=== PATIENT | male | born 1955 | race African-American/Black ===

== ENCOUNTER 2019-03-09 12:22 | Inpatient (IN) | payer SELFPAY ==
[~2019-03-09] VITALS: Ht 165.1 cm; Wt 84.9 kg
--- NOTE | 2019-03-09 13:01 | NUR ---
PT PRESENTS TO ED WITH C/O ALOC, BACK PAIN, AND LOW BLOOD SUGAR. 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 EMS STS PT WAS ACTING CONFUSED AND PT BS WAS 55. EMS STS THEY GAVE GLUCOSE AND PT BS WENT UP TO 65 SO THEY GAVE PT D10. EMS STS PT WAS AFIB RVR ON MONITOR IN ROUTE TO ED, BUT ARRIVED TO ED WITH ONLY AFIB ON THE MONITOR. EMS STS PT ONLY HAS HX OF HTN, BUT HAS NOT SEEN A MD IN "OVER 7 YEARS". PER PT, HE STOPPED TAKING HTN MEDICATION "A COUPLE YEARS AGO". PT ARRIVED TO ED ONLY COMPLAINING OF LOWER BACK/SACRAL PAIN. PT DENIES ANY TRAUMA TO BACK OR N/V/D. PT ARRIVED COLD/CLAMMY , RR 28, W/ INCREASE WOB NOTED. PT AAOX3, PUT ON FULL CM. WILL CONTINUE TO MONITOR.
--- NOTE | 2019-03-09 13:15 | NUR ---
PT EDILBERTO ARRIVED AT BEDSIDE STATING PT HAD DIFFICULTY WALKING YESTERDAY AND SLEPT ON THE FLOOR. PER EDILBERTO PT WAS BREATHING "FASTER THAN HE NORMALLY DOES". MYRANDAMILLIE STS SHE SLEPT ON THE FLOOR WITH PT AND CALL EMS WHEN PT WAS C/O BACK PAIN.
--- NOTE | 2019-03-09 13:29 | NUR ---
XRAY AT BEDSIDE.
[2019-03-09 13:46] LABS: CALCIUM 8.7 mg/dL (8.5-10.1); CARBON DIOXIDE 15.2 mmol/L (21-32); CREATININE SERUM 1.9 mg/dL (0.7-1.3)
[2019-03-09 13:50] LABS: BILIRUBIN TOTAL 4.9 mg/dL (0.20-1.00); TOTAL PROTEIN, SERUM 6.6 g/dL (6.4-8.2)
[2019-03-09 13:53] LABS: PLATELET COUNT 96 x10^3mcL (130-400); RED CELL DISTRIBUTION WIDTH 16.7 % (11.5-14.5)
[2019-03-09 13:55] LABS: ALBUMIN 2.2 g/dL (3.4-5.0)
--- NOTE | 2019-03-09 13:57 | NUR ---
PT ACTING MORE CONFUSED, ASKING "WHERE AM I". PT ABLE TO STATE HIS NAME, DATE OF , AND NAME OF FIANCE AT BEDSIDE. DR. LYN NOTIFIED.
[2019-03-09 13:58] LABS: T3 TOTAL 0.46 ng/mL
--- NOTE | 2019-03-09 14:05 | NUR ---
NOTIFIED DR. LYN OF PT BP 85/53, PER , HOLD LASIX MEDICATION FOR NOW.
--- NOTE | 2019-03-09 14:15 | NUR ---
PT TOLD HE NEEDS TO PROVIDE URINE SAMPLE. PT STS HE CAN USE URINAL. PT GIVEN URINAL.
[2019-03-09 14:18] LABS: FREE T4 1.33 ng/dL (0.76-1.46); FREE THYROXINE INDEX 2.7 ug/dL (1.4-4.5); T4(THYROXINE) 7.4 ug/dL (4.7-13.3)
[2019-03-09 14:26] LABS: MONOCYTE 8 % (0-7); SEGMENTED NEUTROPHILS 86 % (37-75)
[2019-03-09 14:27] LABS: rbc morphology (normal/abnorm) NORMAL (NORMAL)
[2019-03-09 15:18] LABS: UA SPECIFIC GRAVITY >=1.030 (1.005-1.035); microscopic required? YES; urine erythrocyte 2+ (NEGATIVE)
[2019-03-09 17:00] VITALS: BP 97/68
--- NOTE | 2019-03-09 17:10 | NUR ---
PT PLACED ON JASON WRIST RESTAINTS FOR SAFETY OF PT NOT REMOVING OG TUBE AND EXTUBATING SELF
--- NOTE | 2019-03-09 17:21 | NUR ---
PROPOFOL INCREASED TO 20MCG/MIN TO REACH RSS SCORE. PT AWAKE AND GAGGING AND MOVING
--- NOTE | 2019-03-09 17:45 | NUR ---
XRAY AT BEDSIDE. PER DR JAMES. OG TUBE IS IN CORRECT PLACEMENT
--- NOTE | 2019-03-09 18:07 | NUR ---
DR JAMES MADE AWARE OF DROP IN BP, ORDERING FENTANYL DRIP
[2019-03-09 18:13] VITALS: BP 87/57
--- NOTE | 2019-03-09 18:32 | NUR ---
PER DR JAMES VERBAL ORDER, START FENTANYL DRIP AT 2MG/KG/HR
--- NOTE | 2019-03-09 18:33 | NUR ---
PER DR MARAVILLA VERBAL ORDER, SINCE FENTANYL IS INFUSING ROP PROPOFOL TO 15MCG/KG/MIN
[2019-03-09 18:38] LABS: AMPHETAMINE QUAL UR NONE DETECTED (See below)
--- NOTE | 2019-03-09 18:51 | NUR ---
PT FINANCE STATES SHE WENT HOME TO EAT AND SLEEP AND WILL COME BACK. CONTACT INFO IN PATIENTS CHART
--- NOTE | 2019-03-09 19:03 | NUR ---
DR JAMES MADE AWARE OF MAP OF 64, PER VERBAL ORDER DROP PROPOFOL TO 10MCG/KG/MIN AND INCREASE FENTANYL TO 2.5 MCG/KG/HR
--- NOTE | 2019-03-09 19:18 | NUR ---
PER DR JAMES DROP PROPOFOL TO 5MCG/KG/MIN
--- NOTE | 2019-03-09 19:43 | NUR ---
ET TUBE PULLED BACK PER XRAY ORDER. PT IS NOW AT 22 AT LIP
--- NOTE | 2019-03-09 19:50 | NUR ---
PULLED ET TO 22CM AT THE LIP.
--- NOTE | 2019-03-09 20:00 | NUR ---
PER DR JAMES REPEAT XRAY LOOKS GOOD
--- NOTE | 2019-03-09 20:03 | NUR ---
REPORT GIVEN TO TALIA BROOKS IN ICU FOR FURTHER CARE OF PT
--- NOTE | 2019-03-09 20:16 | NUR ---
TRANSPORTED PATIENT ON VENTILATOR FROM ER TO ICU BED 5 WITH NO INCIDENT. VENTILATOR IS PLUGGED INTO RED OUTLET AND CONNECTED TO OXYGEN. SPO2 MAINTAINED AT 98%.
[2019-03-09 20:38] VITALS: BP 79/52
--- NOTE | 2019-03-09 20:50 | NUR ---
NIBP 79/52 (62), LEVOPHED GTT INITIATED @ 2 MCG/MIN.
--- NOTE | 2019-03-09 20:50 | NUR ---
RECEIVED PT FROM ER VIA GURNEY ACCOMPANIED BY RN AND EMT. PT TRANSFERED TO ICU BED 5 WITH NO COMPLICATIONS. PT CONNECTED TO FULL CONSTRUCTION ANALYST, VITALS READING: NIBP 79/52 MAP 62, HR 106, RR 20, SPO2 100%, AXILLARY TEMP 96.8. RECEIVED PT INTUBATED AND SEDATED ON PROPOFOL @ 5 MCG/KG/MIN AND FENTANYL GTT @ 2.5 MCG/KG/HR. RSS=5. FENTANYL GTT TITRATED TO 1 MCG/KG/HR. PT RESPONDS TO PAINFUL STIMULI. GAG REFLEX PRESENT. PUPILS WITH SLUGGISH RESPONDS TO LIGHT 2 MM BILAT. 8.0 ETT INTACT/SECURED, 22 CM @ LL. OGT INTACT/SECURED. BREATHING IS E/U ON VENT. VENT SETTINGS: VCV AC MODE, RATE 16, VT 500, PEEP 5, FIO2 40%. LUNGS SOUND CLEAR TO BUL AND DIMIN TO BLL. SYMMETRICAL CHEST EXPANSION NOTED. S1/S2 HEART SOUNDS AUSCULTATED. CHEST WALL EQUAL AND SYMMETRICAL. LEVOPHED GTT INFUSING @ 2 MCG/MIN. PALPABLE PULSES X4 EXTREMITIES. SKIN IS WARM AND DRY. +3 PITTING EDEMA NOTED TO BLE. CAP REFILL<3 SECS. RAC, LAC, AND RFA IV'S INTACT/ SECURED, NO S/S OF INFILTRATION NOTED. NS INFUSING @ 100 ML/HR. PT ON BILAT SOFT WRIST RESTRAINT FOR PT SAFETY, GOOD CIRCULATION NOTED. ABD IS SOFT, ROUND, NONTENDER TO PALPATION. BOWEL SOUNDS ACTIVE X4 QUADRANTS. NO BM NOTED. F/C INTACT/SECURED, DRAINING VIA GRAVITY WITH AVINASH COLORED URINE. NO SCROTAL EDEMA/PENILE DISCHARGE NOTED. SKIN IS INTACT. BED IN LOW POSITION. CALL LIGHT IN REACH. WILL CONT TO MONITOR
--- NOTE | 2019-03-09 21:30 | NUR ---
NIBP 83/57 MAP 63. LEVOPHED GTT INCREASED TO 4 MCG/MIN
[2019-03-09 22:18] VITALS: BP 86/58
[2019-03-09 23:00] VITALS: BP 90/58
--- NOTE | 2019-03-09 23:00 | NUR ---
RSS=5. FENTANYL GTT TITRATED TO 0.05 MCG/KG/HR.
[2019-03-10] VITALS (17 sets, daily range): BP systolic 82–106; BP diastolic 47–60
--- NOTE | 2019-03-10 00:20 | NUR ---
DR. ALLEN AT BEDSIDE. UPDATED ON PT'S STATUS. PER DR. ALLEN, WILL PLACE PT ON AMIODARONE GTT
--- NOTE | 2019-03-10 01:05 | NUR ---
AMIODARINE GTT INITIATED AT THIS TIME @ 1 MG/MIN PER DR. TIFFANY MARIE
--- NOTE | 2019-03-10 01:10 | NUR ---
REPORT GIVEN TO CHANDLER COMPLIANCE ADMINISTRATOR FOR CONTINUITY OF CARE. ALL QUESTIONS/CONCERNS ADDRESSED. ENDORSING ALL CARE
[2019-03-10 06:57] LABS: CALCIUM 7.9 mg/dL (8.5-10.1); CARBON DIOXIDE 15.5 mmol/L (21-32); CREATININE SERUM 1.8 mg/dL (0.7-1.3); MAGNESIUM 1.8 mg/dL (1.8-2.4); PHOSPHOROUS 3.9 mg/dL (2.5-4.9)
[2019-03-10 07:12] LABS: PLATELET COUNT 106 x10^3mcL (130-400); RED CELL DISTRIBUTION WIDTH 15.6 % (11.5-14.5)
--- NOTE | 2019-03-10 07:15 | NUR ---
RECEIVED PT'S REPORT FROM LEAVING NURSE. PT IS INTUBATED WITH SEDATION FENTAMYL 0.5MCG/KG/HR, AND PROPOFOL 5MCG/KG/MIN, RSS 5. DECREASED PROPOFOL FROM 5 TO 4 MCG/KG/MIN. PT BREATHING ON VENT AC MODE: TV 500, FIO2 40%, PEEP 5, RR 16. OGT SECURED TO ETT. RAYO IN PLACE, DRAINING VIA GRAVITY, AVINASH URINE. NEW RIJ CENTRAL LINE INSERTED. COOLING MEASURES APPLIED FOR ELEVATED TEMP. WILL CONTINUE TO MONITOR.
--- NOTE | 2019-03-10 07:30 | NUR ---
START PT ON AMIODARONE 0.5MG/MIN FOR 18HRS.
--- NOTE | 2019-03-10 10:05 | NUR ---
PT'S BP 108/57, TITRATE DOWN LEVOPHED FROM 12MCG/MIN TO 10MCG/MIN. DC PROPOFOL, AND STARTED VERSED AT 2MG/H PER ORDER, RSS 4 AT THIS TIME.
--- NOTE | 2019-03-10 10:50 | NUR ---
PT'S 3RD TROP 2.[address] THORNE AWARE WHILE MORNING ROUND.
--- NOTE | 2019-03-10 11:07 | NUR ---
PT'S BP 87/50 (59), TITRATE UP LEVOPHED FROM 10MCG/MIN TO 12MCG/MIN. PT RSS 5, TITRATE VERSED FROM 2MG/H TO 1MG/HR.
--- NOTE | 2019-03-10 11:35 | NUR ---
PT' BP 99/51 (61), TITRATE UP FROM 12 TO 14 MCG/MIN.
[2019-03-10 11:52] LABS: BAND NEUTROPHIL 1 % (0-10); MONOCYTE 7 % (0-7); SEGMENTED NEUTROPHILS 86 % (37-75)
[2019-03-10 11:53] LABS: MYELOCYTE 1 % (0-2); rbc morphology (normal/abnorm) ABNORMAL (NORMAL); tear drop cell (dacryocyte) 1+
[2019-03-10 11:54] LABS: PLATELET MORPHOLOGY PLATELETS DECREASED
--- NOTE | 2019-03-10 12:26 | NUR ---
DR. SAAVEDRA ASSESSED PT AT BEDSIDE. PT'S CONDITION UPDATED. PER DR. SAAVEDRA, STOPED IV FLUID, CONTINUE AMIODARONE 0.5MG/MIN FOR 18 HRS.
--- NOTE | 2019-03-10 13:33 | NUR ---
PT IS WELL SEDATED, RSS 5, BP 94/60. TITRATED DOWN VERSED FROM 1 TO 0.5MG/HR.
--- NOTE | 2019-03-10 16:35 | NUR ---
Discount pharmacy card and list to low cost medical clinics given to patient by Piero Colunga.
--- NOTE | 2019-03-10 18:30 | NUR ---
PT'S FIANCE AT BEDSIDE. PT'S CONDITION UPDATED. PT IS STILL WELL SEDATED ON VERSED 0.5MG/HR, FENTANYL 0.5MCG/KG/H, RSS 4. PT'S HR REMAINING AT 110s ON AMIODARONE DRIP 0.5MG/MIN SINCE THIS MORNING 0730 AM. PT BREATHING ON VENT AC MODE, MILD LABORED NOTED. PT'S BP IS MAINTAINING MAP > 65 BY LEVOPHED. 200ML TOTAL URINE OUTPUT THROUGH SHIFT. WILL ENDORSE PT'S CARE TO COMING NURSE.
--- NOTE | 2019-03-10 19:01 | NUR ---
RECIEVED REPORT FROM TODD BEYER. NURSING UPDATES POC DISCUSSED. SEE SHIFT ASSESSMENT FOR ASSESSMENT.
--- NOTE | 2019-03-10 22:00 | NUR ---
NO ACUTE CHANGES. WILL CONT TO MONITOR.
[2019-03-11] VITALS (18 sets, daily range): BP systolic 88–103; BP diastolic 45–62
--- NOTE | 2019-03-11 01:00 | NUR ---
TITRATED LEVO FROM 12MCG TO 14MCG PER PT LOW BP. WILL CONT TO MONITOR.
--- NOTE | 2019-03-11 02:24 | NUR ---
NO ACUTE CHANGES. WILL CONT TO MONITOR.
--- NOTE | 2019-03-11 02:25 | NUR ---
TITRATED LEVO FROM 14MCG TO 16MCG PER PT LOW BP. WILL CONT TO MONITOR.
--- NOTE | 2019-03-11 03:30 | NUR ---
TITRATED LEVO FROM 16MCG TO 18MCG PER PT LOW BP. WILL CONT TO MONITOR.
--- NOTE | 2019-03-11 04:00 | NUR ---
PT CLEANED AND LINENS CHANGED. NOTED PT W/ WARM TEMP TO TOUCH. TEMP RETAKEN 101.9. NOTED WILL REASSESS W/ COOLING MEASURES AND PRN.
--- NOTE | 2019-03-11 04:19 | NUR ---
ADM PRN TYLENOL FOR FEVER 102.0. PT FELT WARM TO THE TOUCH. COOLING MEASURES IN [place]. WILL REASSESS.
--- NOTE | 2019-03-11 04:30 | NUR ---
TITRATED LEVO FROM 18 MCG TO 20MCG PER PT LOW BP. WILL CONT TO MONITOR.
--- NOTE | 2019-03-11 05:28 | NUR ---
RESIDENTIAL MANAGER JULIETA @ BEDSIDE.
[2019-03-11 05:42] LABS: PLATELET COUNT 82 x10^3mcL (130-400); RED CELL DISTRIBUTION WIDTH 16.4 % (11.5-14.5)
[2019-03-11 05:44] LABS: CALCIUM 7.8 mg/dL (8.5-10.1); CARBON DIOXIDE 18.7 mmol/L (21-32); CREATININE SERUM 2.2 mg/dL (0.7-1.3); MAGNESIUM 1.8 mg/dL (1.8-2.4); PHOSPHOROUS 3.5 mg/dL (2.5-4.9); POTASSIUM SERUM 3.6 mmol/L (3.5-5.1)
--- NOTE | 2019-03-11 06:57 | NUR ---
SISTER OMA CALLED FOR UPDATES. NOTIFIED FOR VERBAL PASSWORD TO DILINQUISH PT INFORMATION. SHE STATED SHE WOULD CALL BACK AROUND NOON FOR UPDATES AND TO ATTEMPT TO SPEAK TO THE DOCTOR.
--- NOTE | 2019-03-11 09:26 | NUR ---
RECEIVED CALL FROM JEREMY CASANOVA. UPDATED ON PT STATUS. JEREMY ALSO REQUESTING PASSWORD FOR SHARING OF PT INFO W/ FAMILY: [id number].
[2019-03-11 10:18] LABS: ALBUMIN 1.7 g/dL (3.4-5.0); BILIRUBIN DIRECT 6.45 mg/dL (0.0-0.2); BILIRUBIN TOTAL 7.25 mg/dL (0.20-1.00); TOTAL PROTEIN, SERUM 5.4 g/dL (6.4-8.2)
--- NOTE | 2019-03-11 10:20 | NUR ---
DR SCHULTE AND RESIDENTS ROUNDING. NO FAMILY BEDSIDE. UPDATES PROVIDED BY NURSING.
--- NOTE | 2019-03-11 11:00 | NUR ---
SEDATION VACATION ATTEMPTED. FENTANYL AND VERSED TITRATED OFF AT THIS TIME.
--- NOTE | 2019-03-11 11:40 | NUR ---
TUBE FEEDING INITIATED @ 10 ML/HR.
--- NOTE | 2019-03-11 12:44 | NUR ---
SCREEN FOR LOW PHILIP SCALE AT RISK CONTINUE PRESSURE ULCER PREVENTION INTERVENTIONS: -TURN AND REPOSITION PATIENT Q 2H OFFLOAD LEFT AND RIGHT HIPS -ASSESS AND MONITOR SKIN CONDITION DURING POSITION CHANGE -OFFLOAD BILATERAL HEELS BY PLACING PILLOWS UNDER CALVES AT ALL TIMES, UNLESS OTHERWISE CONTRAINDICATED -PRESSURE REDISTRIBUTION SURFACE THERAPY WITH PILLOWS/WEDGE POSITIONER -KEEP SKIN CLEAN AND DRY AT ALL TIMES.
--- NOTE | 2019-03-11 14:28 | NUR ---
Initial Nutrition Assessment: IC07/24 JAS[facility] FU HR Dx: NSTEMI, CHF, Afib PMHx: HTN, Afib PSHx: none Labs: BG 132H, BUN 49H, CREAT 2.2H, ALB 2.2L, AST 59H, ALT 15L, WBC 31.1L, HGB 10.4L Meds: Colace, flagyl, levophed, morphine, norco, versed, Zofran, zosyn Diet: (NG) Vital AF 1.2 @ 10 ml/hr, goal 30 ml/hr. PO intake since admission: NPO Ht: 165.1 cm (65") Wt: 94 kg (206#) BMI: 34.5 kg/m2 Bed scale: 206# IBW: 136# (62 kg) %IBW: 151 UBW: unable to access Age: 64/M Food Allergies: NKFA Skin: dry skin on JASON foot Kojo: 12 Edema: +3 BLE GI: Last BM: Per H&P, Pt is a 64 YO M came to ED with c/o intermittent sacral pain for the past [address] Note (03/11): Patient is intubated and sedated. Per RN Michael, tube feedings were ordered this morning and will be initiated soon. Called discharge rn in the afternoon, he said that Vital AF is running @ 10 ml/hr. Problem with: N/V/D/C: none per RN Problems with: Chewing: Swallowing: yes, on TF Current appetite: unable to access Recent wt change: unable to access %wt change: n/a Vitamin/Supplement use: unable to access Special diet at home: unable to access Physical activity: unable to access Nutrition education given: not possible at this time Food-drug interactions: none Education given: n/a Estimated Nutritional Needs Based on adjusted body weight (70 kg) (min vent- 10.6, temp- 37.6) Energy: 4223-9389 vs 1966 kcal/day (30-35 vs PSU kcal/kg for mechanical ventilator support) Protein: 84-98 g/day (1.2-1.4 g/kg for mechanical ventilator support) Fluid: 1199-6987 mL/day (1 mL/kcal) Nutrition Diagnosis: 1. Inadequate enteral nutrition infusion related to low TF rate as evidenced by current rate meeting <75% estimated calorie and protein needs of the patient. Intervention 1. Recommend progressing Vital AF 1.2 @ goal rate of 60 ml/hr. This will provide 1730 kcal and 108g protein. This will meet 100% calorie and protein needs of the patient. Discussed with Dr. Matta. Monitor/Evaluate Goal: PO intake at least 75% of estimated needs Monitor: PO intake, Labs, GI function F/U in 3-5 days as moderate risk 03/14-
--- NOTE | 2019-03-11 15:38 | NUR ---
LEVOPHED TITRATED TO 18 MCG/MIN, MAP 77.
--- NOTE | 2019-03-11 16:01 | NUR ---
PUT ON CPAP BY DR RAUSCH: 12/28, 30% FIO2.
--- NOTE | 2019-03-11 20:00 | NUR ---
PT RESTING WITH EYES CLOSED. RESPONDS TO PAIN STIMULI. COARSE CRACKLES NOTED JASON LUUNGS. BREATHING EVEN AND UNLABORED ON ETT TO VENT, CPAP, SPO2 100%. BOWEL SOUNDS ACTIVE. NON PITTING EDEMA NOTED ON BUE. PITTING EDEMA NOTED ON BLE. RAYO CATH INTACT AND DRAINING TO GRAVITY WITH TEA COLORED URINE. IV SALINE LOCK NOTED ON JASON AC AND RIGHT WRIST. RIJ CENTRAL LINE NOTED INFUSING ORDERED. MADE PT COMFORTABLE. PLACED CALL LIGHT WITH IN REACH. WILL CONTINUE TO MONITOR.
--- NOTE | 2019-03-11 21:04 | NUR ---
PT TUBE FEEDING REDUCED TO 10 ML/HR. RESIDUAL OUTPUT 150 ML/HR.
--- NOTE | 2019-03-11 23:23 | NUR ---
PT WAS PUT BACK ON AC MODE BY RT. DR. ALLEN AND DR. SOARES MADE AWARE. NO NEW ORDER GIVEN. WILL CONTINUE TO MONITOR.
[2019-03-12] VITALS (18 sets, daily range): BP systolic 93–113; BP diastolic 54–97
--- NOTE | 2019-03-12 00:51 | NUR ---
PT WAS OBSERVED TO HAVE YELLOW THICK DISCHARGE COMING FROM THE TIP OF THE PENIS. DR. ALLEN NOTIFIED. WILL CONTINUE TO MONITOR.
--- NOTE | 2019-03-12 01:25 | NUR ---
Seen and examined by Dr. Kale Horne with new orders. CBC, BMP , orders already in system. Will continue to monitor.
--- NOTE | 2019-03-12 01:37 | NUR ---
PT NOTED WITH FACIAL GRIMACE AND RESPIRATORY RATE 26. GAVE PT MORPHINE IVP. PT TOLERATED IT WELL. WILL CONTINUE TO MONITOR.
--- NOTE | 2019-03-12 05:14 | NUR ---
PT NOTICED WITH FACIAL GRIMACE, RR 27. GAVE PT MORPHINE IVP. PT TOLERATED IT WELL. WILL CONTINUE TO MONITOR.
[2019-03-12 05:18] LABS: BASOPHIL % 0.3 % (0-2)
[2019-03-12 05:27] LABS: CREATININE SERUM 2.1 mg/dL (0.7-1.3); MAGNESIUM 1.9 mg/dL (1.8-2.4); PHOSPHOROUS 3.5 mg/dL (2.5-4.9); POTASSIUM SERUM 3.7 mmol/L (3.5-5.1)
[2019-03-12 05:28] LABS: PLATELET COUNT 66 x10^3mcL (130-400); RED CELL DISTRIBUTION WIDTH 16.4 % (11.5-14.5)
--- NOTE | 2019-03-12 08:30 | NUR ---
DR. RAUSCH AT BEDSIDE TO ASSESS PATIENT. UPDATES PROVIDED AND POC DISCUSSED. DR. RAUSCH MADE AWARE OF THE TUBE FEEDINGS HIGH RESIDUALS AND NO BOWEL MOVEMENT FOR 3 DAYS. ORDERS GIVEN TO GIVE A FLEET ENEMA AND DUCCOLAX SUPPOSITORY. ALSO, DR. RAUSCH MADE AWARE THERE IS NO FWF ORDERS OR WHEN TO STOP OR RESUME THE TUBE FEEDINGS. ORDERS GIVEN FOR FWF 50 ML Q4 HRS AND TO HOLD TUBE FEEDINGS IF GREATER THAN 500 AND RESUME OF LESS THAN 200. DR. RAUSCH ALSO MADE AWARE THE PATIENT WAS GIVEN MORPHINE TWICE LAST NIGHT FOR RR 22, ORDER GIVEN TO DC THE MORPHINE SO WE CAN ASSESS THE PATIENT'S NEUROLOGICAL STATUS. WILL FOLLOW AND CONTINUE TO MONITOR.
--- NOTE | 2019-03-12 08:42 | NUR ---
PATIENT ROUNDS WITH DR. SCHULTE AND RESIDENTS. UPDATES PROVIDED AND POC DISCUSSED. WHEN DR. SCHULTE WAS CHECKING FOR ANY RESPONSE DURING PAINFUL STIMULI, PATIENT ONLY MOVED RIGHT SIDE OF BODY AND LEFT SIDE REMAINED FLACCID. ALSO, LEFT FOOT APPEARS TO BE TURNING WHITE, LACK OF BLOOD FLOW AND RUE APPEARS MORE EDEAMATOUS THAN THE LUE. ORDERS FOR BLE ARTERIAL AND VENOUS ULTRASOUND AND ULTRASOUND VENOUS OF RUE GIVEN. DR. SCHULTE AND RESIDENTS ALSO MADE AWARE OF THE WHITE MILKY DISCHARGE NOTED TO THE PENIS. ORDERS TO CULTURE THE DISCHARGE GIVEN. WILL FOLLOW AND CONTINUE TO MONITOR.
--- NOTE | 2019-03-12 09:00 | NUR ---
DR. CASTRO AT BEDSIDE TO ASSESS PATIENT. UPDATES PROVIDED AND POC DISCUSSED. WILL CONTINUE TO MONITOR.
--- NOTE | 2019-03-12 09:17 | NUR ---
IV TO RAC DC'D AT THIS TIME WITH CATH TIP INTACT. WILL CONTINUE TO MONITOR.
--- NOTE | 2019-03-12 10:25 | NUR ---
RECEIVED ORDER FOR HEAD CT. CALLED ICU FOR STATUS REPORT, NURSE UNAVAILABLE TO COME TO THE PHONE, WILL CALL US PER FIELD TECHNICIAN.
--- NOTE | 2019-03-12 10:54 | NUR ---
WARP DRAWER AT BEDSIDE FOR BLE ARTERIAL AND VENOUS ULTRASOUND AND RUE VENOUS ULTRASOUND. WILL CONTINUE TO MONITOR.
--- NOTE | 2019-03-12 11:15 | NUR ---
PATIENT HAVING US EXAM, ALSO, RT BUSY AT THIS TIME, UNABLE TO TRANSPORT TO CT AT THIS TIME.
--- NOTE | 2019-03-12 12:15 | NUR ---
PATIENT OFF FLOOR FOR CT HEAD VIA BED ATTACHED TO BICYCLE COURIER ACCOMPANIED BY NURSE.
--- NOTE | 2019-03-12 12:35 | NUR ---
PATIENT RETURNED FROM CT HEAD VIA BED ATTACHED TO COMPREHENSIVE OPHTHALMOLOGIST ACCOMPANIED BY NURSE. VSS. NO INCIDENCE OCCURRED. WILL CONTINUE TO MONITOR.
--- NOTE | 2019-03-12 13:05 | NUR ---
TUBE FEEDINGS TITRATED OFF AT THIS TIME DUT TO HIGH RESIDUALS AND I WILL BE GIVING APPROX 300 ML OF CITRATE OF MAGNESIUM VIA OGT. WILL MONITOR RESIDUALS. WILL CONTINUE TO MONITOR.
--- NOTE | 2019-03-12 14:44 | NUR ---
NIBP 102/61, MAP 72. LEVOPHED DRIP TITRATED DOWN FROM 15 TO 13 MCG/MIN. WILL CONTINUE TO MONITOR.
--- NOTE | 2019-03-12 14:59 | NUR ---
PATIENT FOUND TO HAVE A SMALL SOFT BROWN BOWEL MOVEMENT. FLEET ENEMA GIVEN PER ORDER. WILL CONTINUE TO MONITOR.
--- NOTE | 2019-03-12 19:50 | NUR ---
RC'D PT INTUBATED, NO SEDATION. PT OBTUNDED, WITHDRAWS TO PAINFUL STIMULI TO RIGHT SIDE, DOES NOT WITHDRAW TO PAINFUL STIMULI ON LEFT SIDE. PUPILS 3MM AND SLUGGISH BILAT. GAG REFLEX NOTED. NO FACIAL DROOP NOTED. 8 ETT INTACT AND SECURED, 22 LL. OGT INTACT AND SECURED. RIJ CVC, PATENT, DRESSING CDI. NO EENT DRESSING NOTED. ETT TO VENT, AC; FIO2 30%, RATE 16, TV 500, PEEP5. RESP E/U. LUNGS DIM TO BASES, CRACKLES NOTED. SPO2 97%, NO RESP DISTRESS NOTED. AFIB ON CM, HR 118. NO S/S OF CP. PT ON AMIODARONE 0.5MG/HR. PT ON LEVOPHED 13MCG/MIN FOR BLOOD PRESSURE SUPPORT PER MD ORDER. WEAK PALP PULSES TO BUE/BLE, EDEMA NOTED TO BUE/BLE, EXTREMITIES ELEVATED. CAP REFILL <3. SKIN WARM TO TOUCH TO RIGHT SIDE, COOL TO LLE. PT REPOSITIONED Q2H AND PRN FOR PRESSURE REDUCTION. PT NPO AT THIS TIME, GRV 50. ABDOMEN SOFT AND ROUND. HYPOACTIVE BS. NO BM NOTED. F/C WITH TEA COLORED URINE DRAINING TO GRAVITY, SECURED IN PLACE. WHITE PENILE DISCHARGE NOTED. SKIN TEAR TO MARY ELLEN NOTED, DRESSING CDI. WILL CONT TO MONITOR
--- NOTE | 2019-03-12 22:00 | NUR ---
GRV 50, TUBE FEEDING RESUMED AT ORGINAL SETTINGS. WILL CONT TO MONITOR CLOSELY
--- NOTE | 2019-03-12 23:53 | NUR ---
TEMP 99.9, COOLING MEASURES IN PLACE. WILL CONT TO MONITOR
[2019-03-13] VITALS (19 sets, daily range): BP systolic 97–110; BP diastolic 53–96
--- NOTE | 2019-03-13 05:43 | NUR ---
DR LOMAX PRESENT AT BEDSIDE TO DISCUSS POC. UPDATED ON PTS CURRENT STATUS. ALL QUESTIONS AND CONCENRS ADDRESSED.
[2019-03-13 06:30] LABS: PLATELET COUNT 82 x10^3mcL (130-400); RED CELL DISTRIBUTION WIDTH 16.2 % (11.5-14.5)
--- NOTE | 2019-03-13 06:30 | NUR ---
DR MCCARTHY PRESENT AT BEDSIDE TO DISCUSS PT POC. UPDATED ON PTS CURRENT STATUS. ALL QUESTIONS AND CONCERNS ADDRESSED.
[2019-03-13 06:31] LABS: CALCIUM 7.9 mg/dL (8.5-10.1); CREATININE SERUM 1.8 mg/dL (0.7-1.3); MAGNESIUM 2.3 mg/dL (1.8-2.4); PHOSPHOROUS 2.3 mg/dL (2.5-4.9); POTASSIUM SERUM 3.4 mmol/L (3.5-5.1)
--- NOTE | 2019-03-13 07:08 | NUR ---
REPORT GIVEN TO EBER BROOKS. ALL QUESTIONS AND CONCERNS ADDRESSED
--- NOTE | 2019-03-13 09:18 | NUR ---
NIBP 110/69 MAP 79, NEOSYN INITIATED AT 75 MCG/MIN AND LEVO TITRATED TO 5 MCG/MIN. PRIMARY RN MADE AWARE. WILL CONT TO MONITOR.
[2019-03-13 09:44] LABS: BILIRUBIN DIRECT 7.6 mg/dL (0.0-0.2); BILIRUBIN TOTAL 8.87 mg/dL (0.20-1.00)
[2019-03-13 09:47] LABS: ALBUMIN 1.7 g/dL (3.4-5.0); TOTAL PROTEIN, SERUM 5.5 g/dL (6.4-8.2)
--- NOTE | 2019-03-13 10:12 | NUR ---
TITRATED LEVOPHEN DOWN TO 2 MCG/MIN. PT BP:107/65, MAP:86. WILL CONTINUE TO MONITOR.
[2019-03-13 10:39] LABS: BAND NEUTROPHIL 7 % (0-10); METAMYELOCTE 3 % (0-2); MONOCYTE 11 % (0-7); MYELOCYTE 2 % (0-2); SEGMENTED NEUTROPHILS 71 % (37-75)
[2019-03-13 10:40] LABS: PLATELET MORPHOLOGY LARGE PLATELET SEEN; rbc morphology (normal/abnorm) ABNORMAL (NORMAL); target cell (codocyte) 1+
--- NOTE | 2019-03-13 10:43 | NUR ---
ALBUMIN FINISHED INFUSING. STARTED LASIX INFUSING AT 5ML/HR. PT BP:110/62, MAP:72. WILL CONTINUE TO MONITOR.
--- NOTE | 2019-03-13 10:50 | NUR ---
LEVOPHED STOPPED. PT BP:104/61, MAP:73. REGAN STILL INFUSING AT 75 MCG/MIN. WILL CONTINUE TO MONITOR.
--- NOTE | 2019-03-13 11:39 | NUR ---
TITRATED REGAN DOWN TO 50 MCG/MIN. PT BP:106/59, MAP:69. WILL CONTINUE TO MONITOR.
--- NOTE | 2019-03-13 11:45 | NUR ---
PATIENT RR IN THE 30'S. RT TIANA PLACED PATIENT BACK ON FULL SUPPORT OF AC MODE, FI02 30%, RATE 16, VT 500 AND PEEP 5. WILL CONTINUE TO MONITOR.
--- NOTE | 2019-03-13 15:50 | NUR ---
AXILLARY TEMPERATURE OF 101.0, TYLENOL GIVEN VIA OGT. COOLING MEASURES IN PLACE. WILL CONTINUE TO MONITOR.
--- NOTE | 2019-03-13 19:15 | NUR ---
RECEIVED REPORT FROM SEVERO BROOKS AND EBER BROOKS. ASSUMING ALL CARE
--- NOTE | 2019-03-13 19:35 | NUR ---
RECEIVE PT LAYING IN BED. PT IS INTUBATED AND ON NO SEDATION. PT RESPONDS TO PAINFUL STIMULI. UNABLE TO FOLLOW SIMPLE COMMANDS. GAG REFLEX PRESENT. PUPILS WITH SLUGGISH RESPONSE TO LIGHT, 3 MM BILAT. 8.0 ETT INTACT/SECURED, 22 CM @ LL. OGT INTACT/SECURED. EENT FREE OF DISCHARGE. ORAL CARE PROVIDED PER VAP PROTOCOL. RIJ CVC TLC INTACT/SECURED. BREATHING IS E/U ON VENT. VENT SETTINGS: VCV AC MODE, RATE 16, VT 500, PEEP 5, FIO2 30%. LUNGS SOUND CLEAR TO BUL AND DIMIN TO BLL. SYMMETRICAL CHEST EXPANSION NOTED. S1/S2 HEART SOUNDS AUSCULTATED. CHEST WALL EQUAL AND SYMMETRICAL. HR 119, NIBP 104/57 MAP 67. NEOSYNEPRHINE GTT INFUSING @ 50 MCG/MIN. AMIODARONE GTT INFUSING @ 0.5 MG/MIN. CVP=10. WEAK PULSES X4 EXTREMITIES. SKIN IS WARM AND DRY. +2 PITTING EDEMA NOTED TO BUE/BLE. CAP REFILL < 3 SECS. LASIX GTT INFUSING @ 5 ML/HR. LAC AND RFA IV'S INTACT/SECURED, SALINE LOCKED. GENERALIZED WEAKNESS. PT ON BEDREST. PT ON VITAL AF TF @ 40 ML/HR WITH 50 CC FWF Q4H. DWC=878, REPLACED. NO N/V NOTED. ABD IS SOFT, ROUND, NONTENDER TO PALPATION. BOWEL SOUNDS ACTIVE X4 QUADRANTS. NO BM NOTED. F/C INTACT/SECURED, DRAINING VIA GRAVITY WITH TEA-COLORED URINE. NO SCROTAL EDEMA NOTED. PENILE WHITE MILKY DISCHARGE NOTED. SKIN TEAR NOTED TO MARY ELLEN WITH DRESSING CDI. PT ON TURN SCHED Q2H AND PRN FOR COMFORT. BED IN LOW POSITION. CALL LIGHT IN REACH. WILL CONT TO MONITOR
--- NOTE | 2019-03-13 22:50 | NUR ---
PT HAD A LARGE BROWN WATERY BM, PERICARE PROVIDED
--- NOTE | 2019-03-13 23:00 | NUR ---
MXQ=190. VITAL AF TF INCREASED TO 50 ML/HR IWTH 50 CC FWF Q4H PER ORDER. WILL CONT TO MONITOR
[2019-03-14] VITALS (19 sets, daily range): BP systolic 92–111; BP diastolic 42–60
--- NOTE | 2019-03-14 04:15 | NUR ---
FULL BED BATH PROVIDED. GOWN AND LINENS CHANGED. ORAL CARE, PERICARE, AND RAYO CARE PROVIDED. HEELS OFFLOADED. PT POSITIONED FOR COMFORT.
--- NOTE | 2019-03-14 04:18 | NUR ---
NIBP 109/59 MAP 79. NEOSYNEPHRINE GTT TITRATED TO 25 MCG/MIN
[2019-03-14 05:28] LABS: PLATELET COUNT 80 x10^3mcL (130-400); RED CELL DISTRIBUTION WIDTH 16.2 % (11.5-14.5)
[2019-03-14 05:57] LABS: CALCIUM 8.3 mg/dL (8.5-10.1); CARBON DIOXIDE 22.4 mmol/L (21-32); CREATININE SERUM 1.5 mg/dL (0.7-1.3); MAGNESIUM 2.2 mg/dL (1.8-2.4); PHOSPHOROUS 2.8 mg/dL (2.5-4.9); POTASSIUM SERUM 3.3 mmol/L (3.5-5.1)
--- NOTE | 2019-03-14 06:07 | NUR ---
SPOKE TO PT'S SISTER DUONG VIA TELEPHONE. UPDATED ON PT'S STATUS. ALL QUESTIONS/CONCERNS ADDRESSED
--- NOTE | 2019-03-14 06:15 | NUR ---
DR. MCCARTHY AT BEDSIDE. UPDATED ON PT'S CURRENT STATUS. ALL QUESTIONS/CONCERNS ADDRESSED. PER DR. MCCARTHY, PT TO REMAIN ON THE LASIX GTT @ 5 ML/HR
[2019-03-14 06:26] LABS: BAND NEUTROPHIL 7 % (0-10); METAMYELOCTE 3 % (0-2); MONOCYTE 6 % (0-7); SEGMENTED NEUTROPHILS 80 % (37-75)
[2019-03-14 06:45] LABS: rbc morphology (normal/abnorm) ABNORMAL (NORMAL)
--- NOTE | 2019-03-14 07:09 | NUR ---
REPORT GIVEN TO YVROSE BROOKS FOR CONTINUITY OF CARE. ALL QUESTIONS/CONCERNS ADDRESSED. ENDORSING ALL CARE
--- NOTE | 2019-03-14 07:10 | NUR ---
PATIENT REMAINS INTUBATED WITH NO SEDATION. PATIENT REPONSIVE TO TACTILE STIMULI BUT NOT FOLLOW ANY SIMPLE COMMANDS. ETT 8.[address] AND SECURED AT 22CM AT LIPLINE. ETT TO VENT VIA VCV/AC MODE: FIO2 30%, RATE 16, VT 500, PEEP 5. OGT IN PLACE AND SECURED TO ETT. OGT PLACEMENT VERIFIED WITH SOME AIR BOLUS. 30ML OF RESIDUAL NOTED AND REPLACED AT THIS TIME. CVC TO RIJ WITH DRESSING IN PLACE. CVP 10. AMIODARONE AT 0.5MG/HR, LASIX AT 5ML/HR. NEOSYN AT 25MCG/MIN. RAYO CATH TO GRAVITY DRAINING AVINASH URINE. CALL LIGHT WITHIN REACH. SIDE RAILS UP X 3. BED IS AT LOWEST POSITION. EXTREMITIES OFFLOADED. ISOGEL MATTRESS IN USE.
--- NOTE | 2019-03-14 12:30 | NUR ---
FOUND OUT OGT COMES OUT ABOUT 2 INCHES; THE TUBE ADVANCED AND NOTIFIED DR. LOMAX FOR KUB TO RECHECK PLACEMENT. TUBE FEEDING WAS HELD AT THIS TIME.
--- NOTE | 2019-03-14 14:50 | NUR ---
THE KUB RESULT SAYS OGT TIP IN GASTRIC LUMEN; TUBE FEEDING RESUMED AT 50ML/HR PREVIOUSLY.
--- NOTE | 2019-03-14 16:20 | NUR ---
AMIODARONE DRIP DISCONTINUED ORDERED.
--- NOTE | 2019-03-14 17:03 | NUR ---
BP 87/54 AND MAP 61; NEOSYN TITRATED FROM 25MCG/MIN UP TO 50MCG/MIN.
--- NOTE | 2019-03-14 18:33 | NUR ---
PATIENT WAS GIVEN A BATH; LINEN AND GOWN CHANGED. RAYO AND CVC CARE PROVIDED TO THE PATIENT.
--- NOTE | 2019-03-14 19:00 | NUR ---
REPORT RECIEVED FROM TODD BEYER. NURSING UPDATES POC DISCUSSED. SEE SHIFT ASSESSMENT FOR ASSESSMENT.
--- NOTE | 2019-03-14 21:30 | NUR ---
NOTIFIED DR CHISHOLM OF PT BECOMING MORE AWAKE. PT ABLE TO TRACK W/ EYES. RESPONDS TO TACTILE STIMULUS. AWAITING NEW ORDERS.
--- NOTE | 2019-03-14 21:55 | NUR ---
PT W/ AGITATION AND BECOMING MORE AWAKE. NEW ORDERS FOR PRN ATIVAN, ADM *(SEE MAR)*. PT TOLERATED WELL. WILL CONT TO MONITOR.
[2019-03-15] VITALS (18 sets, daily range): BP systolic 89–142; BP diastolic 50–72
--- NOTE | 2019-03-15 00:35 | NUR ---
NO ACUTE CHANGES. WILL CONT TO MONITOR.
--- NOTE | 2019-03-15 01:58 | NUR ---
NO ACUTE CHANGES. WILL CONT TO MONITOR.
[2019-03-15 05:20] LABS: BASOPHIL % 0 % (0-2); PLATELET COUNT 95 x10^3mcL (130-400); RED CELL DISTRIBUTION WIDTH 16.9 % (11.5-14.5)
[2019-03-15 05:50] LABS: CALCIUM 8.1 mg/dL (8.5-10.1); CARBON DIOXIDE 25.6 mmol/L (21-32); CHLORIDE SERUM 111 mmol/L (98-107); CREATININE SERUM 1.2 mg/dL (0.7-1.3); GFR1 > 60 mL/min; GLUCOSE SERUM 125 mg/dL (74-106); MAGNESIUM 1.6 mg/dL (1.8-2.4); PHOSPHOROUS 2.5 mg/dL (2.5-4.9); POTASSIUM SERUM 3.9 mmol/L (3.5-5.1); SODIUM SERUM 144 mmol/L (136-145)
--- NOTE | 2019-03-15 07:10 | NUR ---
RECEIVED REPORT FROM RADHA BROOKS. PATIENT RESTING COMFORTABLY IN BED WITH AIR MATTRESS IN PLACE. NO NEEDS IDENTIFIED. 8.[address] AND SECURED @ 22CM LIPLINE. VENT SETTINGS: AC MODE, TV 500, PEEP 5, RATE 16, FIO2 30. OGT IN PLACE AND SECURED TO ETT. INFUSING VITAL AF @ 50 ML/HR W 50 ML FWF Q4H. RESIDUAL CHECKED AND IS 30 ML WAS REPLACED. FLEXISEAL IN PLACE DRAINING MINIMAL WATERY DARK BROWN/GREEN STOOL. RAYO IN PLACE DRAINING AVINASH URINE. CENTRAL TO RIJ IS PATENT AND INFUSING LASIX @ 5ML/HR AND REGAN-SYNEPHRINE @ 50. CVP =8. ALL QUESTIONS AND CONCERNS ADDRESSED.
--- NOTE | 2019-03-15 12:25 | NUR ---
PATIENT RESTLESS AND WITH INCREASED RESPIRATIONS AND HEART RATE. 1 MG ATIVA IVP ADMINISTERED. WILL MONITOR.
--- NOTE | 2019-03-15 14:47 | NUR ---
IN TO SEE PATIENT AND ADMINISTER MEDICATION (SEE eMAR). TUBE FEED STOPPED AND RESIDUAL CHECKED = 0ML. MEDICATION ADMINSITERED AND TUBING FLUSHED. TUBE FEEDING RESUMED.
--- NOTE | 2019-03-15 15:19 | NUR ---
SPOKE WITH DR LOMAX TO NOTIFY OFPT GENITAL CULTURE RESULT POSITIVE E.COLI AND FEW MDRO. ALSO REQUESTED COVERAGE FOR MAG 1.[address] ORDERS.
--- NOTE | 2019-03-15 19:15 | NUR ---
RECEIVED REPORT FROM ALFREDO BROOKS. WILL RESUME CARE.
--- NOTE | 2019-03-15 19:31 | NUR ---
REPORT GIVEN TO SUNITA BROOKS. ALL QUESTIONS AND CONCERNS ADDRESSED. ALL CARES ENDORSED.
--- NOTE | 2019-03-15 20:15 | NUR ---
RT ZAC AT BEDSIDE ASSESSING PT AND GIVING BREATHING TREATMENT. PT TOLERATING WELL.
--- NOTE | 2019-03-15 22:37 | NUR ---
PT RESTLESS. GIVEN ATIVAN 1MG IVP. WILL CONTINUE TO MONITOR.
[2019-03-16] VITALS (21 sets, daily range): BP systolic 94–143; BP diastolic 49–75
--- NOTE | 2019-03-16 04:10 | NUR ---
PT CLEANED. ALL LINENS AND GOWN CHANGED. RAYO CATHETER CARE PROVIDED. 1,240CC OF YELLOW URINE OUTPUT. 75CC OF BROWN LOOSE STOOL IN FLEXISEAL. PT OFFLOADED WITH PILLOWS.
--- NOTE | 2019-03-16 04:50 | NUR ---
TUFT MACHINE OPERATOR AT BEDSIDE FOR BLOOD DRAW.
[2019-03-16 05:31] LABS: PLATELET COUNT 124 x10^3mcL (130-400); RED CELL DISTRIBUTION WIDTH 17.2 % (11.5-14.5)
[2019-03-16 05:42] LABS: CALCIUM 8.1 mg/dL (8.5-10.1); CHLORIDE SERUM 111 mmol/L (98-107); GFR1 > 60 mL/min; GLUCOSE SERUM 109 mg/dL (74-106); MAGNESIUM 1.4 mg/dL (1.8-2.4); SODIUM SERUM 145 mmol/L (136-145)
[2019-03-16 06:00] LABS: BAND NEUTROPHIL 5 % (0-10); METAMYELOCTE 2 % (0-2); MONOCYTE 7 % (0-7); SEGMENTED NEUTROPHILS 79 % (37-75); rbc morphology (normal/abnorm) ABNORMAL (NORMAL)
--- NOTE | 2019-03-16 06:00 | NUR ---
DR. LOMAX AT BEDSIDE ASSESSING PT. UPDATES PROVIDED. MADE AWARE OF LAB VALUE K+ 3.0.
[2019-03-16 06:01] LABS: PLATELET MORPHOLOGY PLATELETS DECREASED
--- NOTE | 2019-03-16 07:45 | NUR ---
PATIENT REMAINS INTUBATED WITH NO SEDATION. PATIENT OPENS HIS EYES TO VERBAL STIMULI BUT DOES NOT FOLLOW COMMANDS AT THIS TIME. JAOSN PUPILS WITH BRISK REACTION TO LIGHT. ETT 8 IS SECURED AT 22CM AT LIPLINE. ETT TO VENT VIA VCV/AC MODE: FIO2 30%,RATE 16, VT 500, PEEP 5. OGT IS SECURED TO ETT. OGT PLACEMENT IS VERIFIED WITH SOME AIR BOLUS AND THE AIR ASPIRATED OUT. NO RESIDUAL NOTED AT THIS TIME. OGT TO TUBE FEEDING WITH VITAL AF AT 50ML/HR AND FREE WATER FLUSH AT 50ML/HR. CVC TO RIJ WITH DRESSING IN PLACE. TELE # 5 SHOWS AFIB. 2 IV SITES TO RFA AND LAC. RAYO CATH TO GRAVITY DRAINING TEA COLORED URINE. FLEXISEAL IN PLACE AND DRAINING LIQUID STOOL. ISOGEL MATTRESS IN USE. EXTREMITIES OFFLOADED. HEAD OF BED ELEVATED. CONTACT ISOLATION MAINTAINED.
--- NOTE | 2019-03-16 08:44 | NUR ---
PATIENT WITH HR 130'S AND RR 30. PATIENT RESTLESS WITH GRIMACING. ADMINISTER ATIVAN 1 MG IVP. WILL MONITOR PATIENT CLOSELY.
--- NOTE | 2019-03-16 09:09 | NUR ---
DR. RAUSCH IS AT BEDSIDE EXAMING THE PATIENT.
--- NOTE | 2019-03-16 09:10 | NUR ---
DR RAUSCH PRESENT AT BEDSIDE TO DISCUSS PT POC. UPDATED ON PT CURRENT STATUS. ALL QUESTIONS AND CONCERNS ADDRESSED. PT TRANSITIONED TO CPAP/PRESSURE SUPPORT AT THIS TIME BY DR RAUSCH. PRIMARY RN AWARE.
--- NOTE | 2019-03-16 10:20 | NUR ---
DR LOMAX CALLED REGARDING ORDERS, PER DR RAUSCH INQUIRE ABOUT POSSIBLE ARTERIAL ULTRASOUND FOR BLE D/T ESCHEMIC CHANGES, DISCOLORATION, AND LUMP NOTED TO RLE. DR LOMAX TO ORDER. AWAITING NEW ORDERS AT THIS TIME.
--- NOTE | 2019-03-16 11:00 | NUR ---
CVP CHECKED 8.
--- NOTE | 2019-03-16 11:55 | NUR ---
Follow-up Nutrition Assessment: Dx: NSTEMI, CHF, a-fib PMHx: HTN, a-fib Labs: (03/16) Na 145, K 3.0 L, Glu 109 H, BUN 34 H, Cr 1.0, A1c 5.4, H/H 10.3 Meds: Aldactone, Ativan, Belkis Children's aspirin, Dulcolax, Flagyl, Lasix, Levophed, Lipitor, Magnesium sulfate, Potassium chloride, Protonix, Senokot, Tylenol, Zofran. Current Nutrition Support: TF Vital AF 1.2 at 50 mL/hr via NGT. This provides 1440 kcal and 90 gm protein. TF Intake: (03/16) 1135 mL, (03/15) 1011 mL, (03/14) 1514 mL GTF Residuals: Skin: dry skin on JASON foot Kojo: 12 Edema: +3 BLE GI: Last BM: RD Note (03/16): RDN visited with Pt. Pt seen in bed. Trach to vent. RN at bedside. Pt tolerating feeding well at 50 mL/hr. RDN discussed with RDN recommendation to increase TF goal rate to 60 mL/hr; RN acknowledges. No c/o N/V/D/C at this time. Estimated Nutritional Needs Based on adjusted body weight of 70 kg. For those on ventilator support: Ventilator Settings 13.3 L/min Temperature: 99.4 F / 37.4 C Energy: 2129 vs. 6629-6940 kcal/d (PSU 2003b vs. 30-35 kcal/kg for mechanical ventilation support) Protein: 84-98 gm/d (1.2-1.4 gm/kg for mechanical ventilation support) Fluid: 4484-9260 mL/d (1 mL/kcal) or per MD. Nutrition Diagnosis 1. Inadequate enteral nutrition infusion related to low TF rate as evidenced by current rate meeting < 75% estimated calorie and protein needs of the patient. (Ongoing) Intervention/RDN Recommendation(s): 1. Recommend increasing TF goal rate to 60 mL/hr. Vital AF 1.2 at 60 mL/hr via NGT will provide 1728 kcal and 108 gm protein to meet 81% kcal and >100% protein needs. Monitor/Evaluate Goal: Intake via nutrition support to meet at least 80% of estimated needs with acceptable tolerance within 2-3 days. Monitor: nutrition support tolerance, Labs, GI function, Skin integrity, Weights. F/U in 2-3 days as high risk (03/18-)
--- NOTE | 2019-03-16 12:07 | NUR ---
PATIENT TACHYCARDIC WITH HR 130'S AND RR 30. PATIENT REMOVED FROM CPAP AND PLACED BACK ON AC MODE. BHARAT RIOS MADE AWARE.
--- NOTE | 2019-03-16 12:54 | NUR ---
ULTRASOUND TECHS PRESENT AT BEDSIDE
--- NOTE | 2019-03-16 12:57 | NUR ---
PATIENT'S HR >130S AND RR>30. PATIENT MOVES HIS RIGHT HAND TOWARD TUBE/LINE. ATIVAN 1MG IVP MEDICATED TO THE PATIENT TO CALM THE PATIENT.
--- NOTE | 2019-03-16 13:57 | NUR ---
BROKEN BLISTER NOTED AT LEFT ARM NEAR THE IV SITE; THE IV AT LAC REMOVED. PHOTOGRAPH OF THE SKIN INTEGRITY AT LAC TAKEN. THE SITE APPLIED WITH VERSATEL.
--- NOTE | 2019-03-16 15:10 | NUR ---
[facility] RADIOLOGY REPORTS. INFORMED DR LOMAX TO REVIEW VENOUS ULTRASOUND TO BUE RESULTS
--- NOTE | 2019-03-16 16:21 | NUR ---
DR RAUSCH TELEPHONED UNIT FOR PATIENT UPDATE. RESULTS PROVIDED OF RECENT US ARTERIAL OF BUE. NEW ORDERS RECEIVED FOR HEPARIN SQ [address] RAUSCH NOW SPEAKING WITH PATIENT'S EDILBERTO LUNA (DECISION MAKER) PROVIDING COMPLETE PATIENT UPDATE.
--- NOTE | 2019-03-16 19:01 | NUR ---
PATIENT WAS GIVEN A BEDBATH; LINEN AND GOWN CHANGED. RAYO AND CENTRAL LINE CARE PROVIDED TO THE PATIENT. CONTACT ISOLATION MAINTAINED THROUGHOUT THE SHIFT DUE TO RESULT OF E. COLI MDRO FROM GENITAL DISCHARGE CULTURE.
--- NOTE | 2019-03-16 19:15 | NUR ---
REPORT GIVEN TO SOL ADKINS RN. CONCERNS ADDRESSED.
--- NOTE | 2019-03-16 19:54 | NUR ---
RECEIVED PT WITH HOB ELEVATED AT 45 DEGREES, LETHARGIC, WITH ETT #8 WITH VENT SETTING OG AC 16, JK=631, FO2 30% PSV=12, LUNGS WITH COARSE CRACKES, RT AT BEDSIDE PROVIDING BREATHING TREATMENT. DR YONATHAN THOMAS BEDSIDE ASSESSING PATIENT, NO NEW ORDERS GIVEN. RAYO CATH TO BSD DRAINING TEA COLORED URINE OUTPUT. SKIN WARMA NDD RY TO TOUCH WITH SKIN TEAR TO BUE/DISCOLORATION TO BILATERAL FEET. NO S/S OF APIN/DISCOMFORT.
[2019-03-17] VITALS (24 sets, daily range): BP systolic 104–166; BP diastolic 61–83
--- NOTE | 2019-03-17 | NUR ---
CONTINUES ON ATB IVPB ORDERED, NO ADVERSE REACTION NOTED. EYES CLOSED, NOF ACIAL GRIAMCING NOTED. RESPIRATION EVEN AND UNLABORED. ETT TO VENT SUPPORT TOLERATED CURRENT VENT SETTIN. NO S/S OFA CUTE RESPIRATORY DISTRESS.
--- NOTE | 2019-03-17 04:41 | NUR ---
OXYHYDROGEN WELDER AT BEDSIDE FRO BLOOD DRAW. RT ADMINISTERING BREATHING TREATMENT, NO S/S OF ACUTE DISTRESS.
[2019-03-17 05:13] LABS: PLATELET COUNT 131 x10^3mcL (130-400)
[2019-03-17 05:16] LABS: RED CELL DISTRIBUTION WIDTH 17.6 % (11.5-14.5)
--- NOTE | 2019-03-17 05:18 | NUR ---
WBC=21.2 DR AVILA MADE AWARE, CONTINUES ON FLAGYL IVPB AND MEREM IV ORDERED. NO ADVERSE REACTION NOTED. RAYO CATH TO BSD WITH TWEA COLORED URINE OUTPUT. TURNED AND REPOSITIONED FOR COMFORT, ALL NEEDS ATTENDED.
[2019-03-17 05:29] LABS: CALCIUM 8.5 mg/dL (8.5-10.1); CARBON DIOXIDE 27.5 mmol/L (21-32); CHLORIDE SERUM 112 mmol/L (98-107); CREATININE SERUM 1.1 mg/dL (0.7-1.3); GFR1 > 60 mL/min; GLUCOSE SERUM 120 mg/dL (74-106); MAGNESIUM 1.5 mg/dL (1.8-2.4); PHOSPHOROUS 3.3 mg/dL (2.5-4.9); POTASSIUM SERUM 3.3 mmol/L (3.5-5.1); SODIUM SERUM 146 mmol/L (136-145)
[2019-03-17 05:59] LABS: MONOCYTE 1 % (0-7); SEGMENTED NEUTROPHILS 90 % (37-75)
[2019-03-17 06:00] LABS: METAMYELOCTE 1 % (0-2); PLATELET MORPHOLOGY PLATELETS NORMAL; rbc morphology (normal/abnorm) ABNORMAL (NORMAL)
--- NOTE | 2019-03-17 06:56 | NUR ---
NO S/S OF ACUTE RESPIRATORY DISTRESS. NO ADVERSE REACTION NOTED FROM ATB THERAPY. ALL NEEDS ATTENDED.
--- NOTE | 2019-03-17 07:10 | NUR ---
REPORT RECEIVED FROM JED BROOKS. ALL CARE ASSUMED AT THIS TIME.
--- NOTE | 2019-03-17 08:45 | NUR ---
DR. LOMAX, DR. SCHULTE, CALCINE FURNACE LOADER, BEDSIDE RN PRESENT. UPDATES PROVIDED, QUESTIONS ANSWERED. DISCUSSED POSSIBLE TRANSFER TO [facility], TO FOLLOW UP WITH CASE MANAGEMENT. SYPHILIS TEST RECOMMENDED, AWAITING ORDER. WILL CONTINUE TO MONITOR.
--- NOTE | 2019-03-17 09:56 | NUR ---
OGT NOT FLUSHING. TRIED FLUSHING WITH SODA AND HOT WATER, TO NO AVAIL. UNABLE TO GIVE MEDS.
--- NOTE | 2019-03-17 10:00 | NUR ---
DR. MERRITT NEPHBRITT AT BEDSIDE. UPDATES PROVIDED, QUESTIONS ANSWERED. HE SUGGESTED INCREASING FWF TO 100 ML Q4H AND INCREASING LASIX GTT TO 8 MG/HR FROM 5 MG/HR. K+ IS 3.3, SO HE SUGGESTED GIVING PT 40 MEQ K+ VIA OGT NOW AND 40 MEQ AGAIN AT 1600. WILL ENTER NEW ORDERS AND CARRY THEM OUT.
--- NOTE | 2019-03-17 10:10 | NUR ---
PT PLACED ON CPAP +5CMH20 W/ PSV [id number] AND FIO2 30%.
--- NOTE | 2019-03-17 10:45 | NUR ---
SPOKE WITH ICU STAFF REGARDING ORDERED HEAD CT. THEY STATE PATIENT UNABLE TO TRANSPORT TO CT UNTIL 12 NOON.
--- NOTE | 2019-03-17 10:50 | NUR ---
PT NOTED TO BE REACHING FOR THE ETT WITH HIS RIGHT HAND. SOFT WRIST RESTRAINT APPLIED TO RIGHT HAND AT THIS TIME. PRIMARY RN MADE AWARE.
--- NOTE | 2019-03-17 11:26 | NUR ---
OGT NOTED TO BE CLOGGED AND UNABLE TO DE-CLOG DESPITE NURSES EFFORTS. OGT REMOVED AND INSERTED A NEW 16F OGT AND ALSCULTATED FOR PLACEMENT. KUB ORDER FOR VERIFICATION. PRIMARY RN MADE AWARE.
--- NOTE | 2019-03-17 11:34 | NUR ---
AWAITING KUB FOR OGT PLACEMENT CHECK & OK TO USE ORDER.
--- NOTE | 2019-03-17 12:01 | NUR ---
PLACED PT BACK ON PREVIOUS A/C VC SETTINGS.
--- NOTE | 2019-03-17 13:11 | NUR ---
PT TAKEN TO CT FOR HEAD CT AT THIS TIME BY LCEO, RT KHALIL, AND KATYA BROOKS. VSS UPON LEAVING.
--- NOTE | 2019-03-17 13:35 | NUR ---
ETT TUBE BARNEY CHANGED AND ETT ADVANCED 2CM AT THE LIP TO 24CM.
--- NOTE | 2019-03-17 13:35 | NUR ---
PT RETURNED TO ROOM AT THIS TIME, RECONNECTED TO VITAL SIGN MONITORING. WILL CONTINUE TO MONITOR.
--- NOTE | 2019-03-17 15:58 | NUR ---
PT RESTING COMFORTABLY. NO S/S ACUTE DISTRESS.
--- NOTE | 2019-03-17 19:10 | NUR ---
RECEIVED REPORT FROM CONCEPCION BROOKS. ASSUMING ALL CARE
--- NOTE | 2019-03-17 19:30 | NUR ---
RECEIVED PT LAYING IN BED. PT IS INTUBATED AND ON NO SEDATION. PT ABLE TO FOLLOW SIMPLE COMMANDS. GAG RELFEX PRESENT. PUPILS WITH SLUGGISH RESPONSE TO LIGHT 3 MM BILAT. NO FACIAL DROOP NOTED. 8.0 ETT INTACT/SECURED, 24 CM @ LL. RIJ CVC INTACT/SECURED, DRESSING CDI. OGT INTACT/SECURED. MOD AMOUNT OF CLEAR SECRETIONS NOTED WITH SUCTIONED, ORAL CARE PROVIDED PER VAP PROTOCOL. BREATHING IS E/U VENT. VENT SETTINGS: VCV AC MODE, RATE 16, VT 500, PEEP 5, FIO2 30%. LUNGS SOUND CLEAR TO BUL AND DIMIN TO BLL. SYMMETRICAL CHEST EXPANSION NOTED. HR 122, NIBP 142/63 MAP 111. CVP=12. PALPABLE PULSES X4 EXTREMITIES. SKIN IS WARM AND DRY. +2 PITTING EDEMA NOTED TO BLE AND +3 EDEMA NOTED LUE. CAP REFILL < 3 SECS. RFA IV INTACT/ SECURED, SALINE LOCKED. LASIX GTT INFUSING @ 8 ML/HR. PT RIGHT WRIST RESTRAINED FOR PT SAFETY, GOOD CIRCULATION NOTED. PT WITH MORE MOVEMENT TO RIGHT SIDE OF BODY THAN LEFT. PT ON VITAL AF TF @ 50 ML/HR WITH 100 CC FWF Q4H. GRV=10, REPLACED. ABD IS SOFT, ROUND, NONTENDER TO PALPATION. BOWEL SOUNDS ACTIVE X4 QUADRANTS. FLEXISEAL INTACT/SECURED, DRAINING VIA GRAVITY WITH WATERY BROWN COLORED STOOL. F/C INTACT/SECURED, DRAINING VIA GRAVITY WITH TEA-COLORED URINE. WHITE MILKY PENILE DISCHARGE NOTED FROM PENIS. SKIN TEARS NOTED TO BUE WITH VERSATILE DRESSING IN PLACE. LARGE BLISTER ON RIGHT DORSAL FOOT, INTACT. BILAT FEET REDDENED. PT REPOSITIONED Q2H AND PRN FOR COMFORT. FAMILY AT BEDSIDE. BED IN LOW POSITION. CALL LIGHT IN REACH. WILL CONT TO MONITOR
--- NOTE | 2019-03-17 21:09 | NUR ---
PT IS AGITATED AT THIS TIME. RR IN THE HIGH 30'S. PT MEDICATED WITH ATIVAN IVP PER EMAR.
[2019-03-18] VITALS (18 sets, daily range): BP systolic 102–123; BP diastolic 62–69
--- NOTE | 2019-03-18 03:12 | NUR ---
AXILLARY TEMP 100.5. PT MEDICATED WITH TYLENOL PER EMAR. COOLING MEASURES IN PLACE. WILL CONT TO MONITOR
--- NOTE | 2019-03-18 04:45 | NUR ---
FULL BED BATH PROVIDED. GOWN AND LINENS CHANGES. PERICARE, RAYO CARE, AND ORAL CARE PROVIDED. CENTRAL LINE DRESSING CHANGED USING STERILE TECHNIQUE. HEELS OFFLOADED. PT POSITIONED FOR COMFORT.
[2019-03-18 05:29] LABS: PLATELET COUNT 155 x10^3mcL (130-400)
[2019-03-18 05:33] LABS: RED CELL DISTRIBUTION WIDTH 17.8 % (11.5-14.5)
[2019-03-18 05:46] LABS: CALCIUM 8.4 mg/dL (8.5-10.1); CARBON DIOXIDE 27.9 mmol/L (21-32); CHLORIDE SERUM 110 mmol/L (98-107); GFR1 > 60 mL/min; GLUCOSE SERUM 126 mg/dL (74-106); MAGNESIUM 1.7 mg/dL (1.8-2.4); PHOSPHOROUS 3.3 mg/dL (2.5-4.9); POTASSIUM SERUM 3.6 mmol/L (3.5-5.1); SODIUM SERUM 147 mmol/L (136-145)
[2019-03-18 06:04] LABS: BAND NEUTROPHIL 0 % (0-10); BASOPHIL 0 % (0-2); MONOCYTE 3 % (0-7); MYELOCYTE 1 % (0-2); PLATELET MORPHOLOGY PLATELETS NORMAL; SEGMENTED NEUTROPHILS 89 % (37-75); rbc morphology (normal/abnorm) ABNORMAL (NORMAL)
--- NOTE | 2019-03-18 06:30 | NUR ---
DR. LOMAX AT BEDSIDE. UPDATED ON PT'S STATUS. ALL QUESTIONS/CONCERNS ADDRESSED.
--- NOTE | 2019-03-18 07:05 | NUR ---
REPORT GIVEN TO CONCEPCION BROOKS FOR CONTINUITY OF CARE. ALL QUESTIONS/CONCERNS ADDRESSED. ENDORSING ALL CARE
--- NOTE | 2019-03-18 07:05 | NUR ---
REPORT RECEIVED FROM SHAN BROOKS. ALL CARE ASSUMED AT THIS TIME.
--- NOTE | 2019-03-18 09:00 | NUR ---
WOUND CARE EVALUATION NOTE: REASON FOR EVALUATION: MULTIPLE WOUNDS SKIN ASSESSMENT DONE WITH PRIMARY RN ON THIS 64 Y/O MALE PT ADMITTED TO [facility] WITH INITIAL DX BACK PAIN. PT IS AWAKE. ABLE TO MAKE EYES CONTACT, SKIN IS PALE, WARM AND DRY, BLE NO HAIR GROWTH, NO EDEMA. LEFT DORSAL PEDAL PULSES PRESENT AND DIMINISHED. CAPILLARY REFILLED > 3 SEC. X 9 TOES. 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 PLAN OF CARE AND RECOMMENDATION DISCUSSED WITH DR. PRIETO/ DR. LOMAX AND PRIMARY RN. DUE TO CORMORBIDITIES, WOUND HEALING MAY DELAY AND FURTHER SKIN BREAKS MAY HAPPEN. INTEGUMENTARY: -ISCHEMIA ULCER TO LEFT 5TH DIGIT TOE, 1X1CM , BLACK AND DRY, NO ODOR, SURROUNDING TISSUE WITH POOR PERFUSION, PURPLE, DARK BROWN DISCOLORATION EXTENDED TO DORSAL AND PLANTAR ASPECTS, SKIN INTACT, COLD TO TOUCH. -RIGHT DORSAL FOOT INTACK BLISTER 5X4 CM, SURROUNDING SKIN INTACT WITH POOR PERFUSION, PURPLE, DARK BROWN DISCOLORATION EXTENDED FROM DORSAL TO PLANTAR ASPECTS, COLD TO TOUCH. -UPPER EXTREMITIES +3 EDEMA WITH MULTIPLE BLISTERS COVER WITH VERSATEL DRESSING, AREA IS DRY AND CLEAN WITH LARGES TO RIGHT UPPER ARM 2X2.5CM SUPERFICIAL DEPTH, TORREY WOUNDS SKIN WEEPING -BLANCHABLE REDNESS TO SACRALCOCCYX AND RIGHT AND LEFT HEELS -INCOTINENT ASSOCIATE DERMATITIS (IAD) TO RIGHT AND LEFT INNER GROINS EXTENDED TO SCROTAL AREA WITH SKIN REDNESS. RECOMMENDATIONS: -VASCULAR CONSULT AND TOPICAL VESSELS DIALAT OINTMENT R/L FEET/TOE -APPLY VERSATEL DRESSING TO MULTIPLE BLISTERS UPPER AND LOWER EXTREMITIES, Q 5 DAYS AND PRN IF SOILING, KEEP AREAS DRY AND CLEAN -CLEAN WITH SOAP AND WATER, PAT, DRY AND APPLY HYDRAGUARD TO RIGHT AND LEFT GROINS EXTENDED TO SCROTAL AREA BID AND PRN IF SOILING -CLEANSE SACRALCOCCYX WITH SOAP AND WATER, PAT DRY, COVER WITH OPTIFOAM DRESSING QD AND PRN IF SOILING PREVENTION -HEEL RAISERS TO BILATERAL HEELS AT ALL TIMES -OFFLOAD BILATERAL HEELS BY PLACING PILLOWS UNDER CALVES UNLESS OTHERWISE CONTRAINDICATED -PRESSURE REDISTRIBUTION SURFACE THERAPY -TURN AND REPOSITION Q2H, OFFLOAD SACRALCOCCYX AND BUTTOCKS BY TURNING RIGHT AND LEFT -CONTINUE TO FOLLOW RD RECOMMENDATIONS ALL ABOVE RECOMMENDATIONS DISCUSSED WITH PRIMARY RN. WILL FOLLOW UP PT Q7-10 DAYS. PLEASE CONTACT WOUND CARE NURSE FOR ANY QUESTION AND CHANGE OF WOUND CONDITION.
--- NOTE | 2019-03-18 10:36 | NUR ---
DR. BISHOP, DR. DEJESUS, DR. PEÑA, CIVIL ENGINEERING PROFESSIONAL, PRIMARY RN AT BEDSIDE FOR ROUNDS. UPDATES PROVIDED, QUESTIONS ANSWERED. DR. BISHOP RECOMMENDED ADDING NITRO PASTE TO ENCOURAGE CIRCULATION IN THE FEET; RECOMMENDED VASCULAR CONSULT; RECOMMENDED COVERING LOW MAGNESIUM. WILL CARRY OUT NEW ORDERS AND CONTINUE TO MONITOR.
--- NOTE | 2019-03-18 11:23 | NUR ---
DR. MERRITT AT BEDSIDE. QUESTIONS ANSWERED, UPDATES PROVIDED. DR. MERRITT REQUESTED INCREASING FWF TO 200 ML Q4H FROM 100 ML Q4H; REQUESTED ADDING POTASSIUM 40 MEQ ONCE PER DAY PER OGT AND TO HOLD ADMINISTRATION IF K+ IS >4.5. WILL ENTER NEW ORDERS AND ENDORSE TO ONCOMING RN.
--- NOTE | 2019-03-18 13:22 | NUR ---
PT RESTLESS, ANXIOUS AT THIS TIME. WILL MEDICATE WITH 1 MG PRN ATIVAN.
--- NOTE | 2019-03-18 13:39 | NUR ---
DR. QUIGLEY AT BEDSIDE. UPDATES PROVIDED, QUESTIONS ANSWERED. NO NEW ORDERS AT THIS TIME.
--- NOTE | 2019-03-18 14:35 | NUR ---
PT RESTING QUIETLY IN BED. NO ANXIETY/AGITATION NOTED AT THIS TIME.
--- NOTE | 2019-03-18 15:53 | NUR ---
KENNEDY AT BEDSIDE
--- NOTE | 2019-03-18 16:05 | NUR ---
PT PLACED ON CPAP AT THIS TIME BY JEFERSON COHN
--- NOTE | 2019-03-18 17:51 | NUR ---
PT PLACED BACK ON A/C VCV VT 500, RATE 16, FIO2 30%, PEEP 5 BY JEFERSON RIOS. PT TACHYPNEIC TO MID 30'S, INCREASED WORK OF BREATHING. WILL CONTINUE TO MONITOR.
--- NOTE | 2019-03-18 19:10 | NUR ---
RECEIVED REPORT FROM CONCEPCION BROOKS. ASSUMING ALL CARE
--- NOTE | 2019-03-18 19:46 | NUR ---
RECEIVED PT LAYING IN BED. PT IS INTUBATED AND ON NO SEDATION. PT ABLE TO FOLLOW SOME SIMPLE COMMANDS. GAG RELFEX PRESENT. 8.0 ETT INTACT/SECURED, 24 CM @ LL. RIJ CVC INTACT/SECURED, DRESSING CDI. OGT INTACT/SECURED. BREATHING IS E/U VENT. VENT SETTINGS: VCV AC MODE, RATE 16, VT 500, PEEP 5, FIO2 30%. LUNGS SOUND CLEAR TO BUL AND DIMIN TO BLL. SYMMETRICAL CHEST EXPANSION NOTED. S1/S2 HEART SOUNDS AUSCULTATED. CHEST WALL EQUAL AND SYMMETRICAL. NO S/S OF CP NOTED. HR 127, NIBP 119/66 MAP 83. CVP=14. PALPABLE PULSES X4 EXTREMITIES. SKIN IS WARM AND DRY. +2 PITTING EDEMA NOTED TO BLE AND +3 EDEMA NOTED LUE. CAP REFILL < 3 SECS. RFA IV INTACT/SECURED, PATENT AND SALINE LOCKED. LASIX GTT INFUSING @ 8 ML/HR. PT RIGHT WRIST RESTRAINED FOR PT SAFETY, GOOD CIRCULATION NOTED. PT NOTED WITH MORE MOVEMENT TO RIGHT SIDE OF BODY THAN LEFT. PT ON VITAL AF TF @ 50 ML/HR WITH 200 CC FWF Q4H. GRV=10, REPLACED. TOLERATING WELL. ABD IS SOFT, ROUND, NONTENDER TO PALPATION. BOWEL SOUNDS ACTIVE X4 QUADRANTS. FLEXISEAL INTACT/SECURED, DRAINING VIA GRAVITY WITH LOOSE BROWN COLORED STOOL. F/C INTACT/SECURED, DRAINING VIA GRAVITY WITH TEA-COLORED URINE. WHITE MILKY PENILE DISCHARGE NOTED. SKIN TEARS NOTED TO BUE WITH VERSATILE DRESSING IN PLACE. LARGE BLISTER ON RIGHT DORSAL FOOT, INTACT. BILAT FEET REDDENED. PT ON TURN SCHED Q2H. PT IS RESTLESS AND AGITATED AT TIMES. BED IN LOW POSITION. CALL LIGHT IN REACH. WILL CONT TO MONITOR
[2019-03-19] VITALS (16 sets, daily range): BP systolic 93–114; BP diastolic 53–69
--- NOTE | 2019-03-19 02:59 | NUR ---
AXILARY TEMP 100.4. PT MEDICATED WITH TYLENOL VIA OGT PER EMAR. COOLING MEASURES IN PLACE. WILL CONT TO MONITOR
[2019-03-19 04:06] LABS: RAPID PLASMA REAGIN Non Reactive (Non Reactive)
--- NOTE | 2019-03-19 04:33 | NUR ---
FULL BED BATH PROVIDED WITH CHG WIPES. GOWN AND LINENS CHANGED. PERICARE, RAYO CARE, ORAL CARE, AND WOUND CARE PROVIDED PER WOUND CARE RECOMMENDATIONS. HEELS OFFLOADED. PT POSITIONED FOR COMFORT.
[2019-03-19 05:39] LABS: ALKALINE PHOSPHATASE 248 U/L (46-116); ALT/SGPT 25 U/L (16-63); AST/SGOT 61 U/L (15-37); CALCIUM 8.4 mg/dL (8.5-10.1); CARBON DIOXIDE 30.3 mmol/L (21-32); CHLORIDE SERUM 113 mmol/L (98-107); GFR1 > 60 mL/min; GLUCOSE SERUM 114 mg/dL (74-106); MAGNESIUM 1.7 mg/dL (1.8-2.4); POTASSIUM SERUM 3.8 mmol/L (3.5-5.1); SODIUM SERUM 149 mmol/L (136-145); TOTAL PROTEIN, SERUM 6.3 g/dL (6.4-8.2)
[2019-03-19 05:40] LABS: ALBUMIN 1.8 g/dL (3.4-5.0)
[2019-03-19 05:46] LABS: BASOPHIL % 0.1 % (0-2); PLATELET COUNT 203 x10^3mcL (130-400)
[2019-03-19 05:48] LABS: RED CELL DISTRIBUTION WIDTH 18.4 % (11.5-14.5)
--- NOTE | 2019-03-19 05:50 | NUR ---
DR. RODRIGUEZ AT BEDSIDE. UPDATED ON PT'S STATUS. ALL QUESTIONS/CONCERNS ADDRESSED. NO NEW ORDERS RECEIVED AT THIS TIME
--- NOTE | 2019-03-19 07:00 | NUR ---
REOPRT GIVEN TO HUMERA BROOKS FOR CONTINUITY OF CARE. ALL QUESTIONS/CONCERNS ADDRESSED. ENDORSING ALL CARE
--- NOTE | 2019-03-19 07:00 | NUR ---
RECEIVED REPORT FROM SHAN BROOKS. ALL QUESTIONS ANSWERED/ADDRESED. ASSUMING CARE
--- NOTE | 2019-03-19 07:29 | NUR ---
PT BECOMING TACHYPNIC IN THE 30'S AND AGITATED. 1MG LORAZEPAM IVP GIVEN AT THIS TIME.
--- NOTE | 2019-03-19 09:00 | NUR ---
NGT FLUSHED WITH 50CC OF NS AT THIS TIME, FLUSHED WELL, AND PULLED BACK WITH NOTHING COMING BACK OUT.
--- NOTE | 2019-03-19 09:30 | NUR ---
PLACED PT BACK ON FULL SUPPORT AT THIS TIME. WILL CONTINUE TO MONITOR.
--- NOTE | 2019-03-19 11:04 | NUR ---
DR BONNER AT BEDSIDE TO SPEAK WITH PATIENT'S FIANCE AND SISTERS. POC DISCUSSED WITH ALL QUESTIONS AND CONCERNS ADDRESSED.
--- NOTE | 2019-03-19 12:18 | NUR ---
PATIENT APPEARS RESTLESS, ATTEMPTING TO PULL ON LINES. ADMINISTER 1 MG ATIVAN IVP FOR RESTLESSNESS.
--- NOTE | 2019-03-19 13:29 | NUR ---
Follow-up Nutrition Assessment- [facility] Dx: Non-stemi, CHF, A-fib Labs: (03/19) Na:149H, BUN:39H, Ca:8.4L, T bili:4.0H, AST:61H, WBC:21.8H, H/H:9.3/28L Meds: Aldactone, Ativan, Belkis's children's aspirin, Dulcolax, Flagyl, KCL, Lasix, Lipitor, Protonix, Senokot, Tylenol, Zofran, Heparin Current Nutrition Support: Vital AF 1.2 at 50ml/hr. FWF:200ml q 4hr via NGT. GRV: (03/19) 0ml, 15ml, (03/18) 15ml Weights: (03/18) 87kg (03/19) 87kg Skin: skin tear to BUE, large blister on right dorsal foot Edema: +3 pitting edema to LUE, +2 pitting edema to BLE Last BM: 03/17 Per progress note 03/19, pt is alert and following the commands. Total urine output is 1800ml. Repeat CBC this morning, continues to show leukocytosis despite IV antibiotics. Patient's fiancee reportedly came to visit the patient overnight and was made aware of patient's poor prognosis. Family members also are aware but won't be in [place] until after the holidays to make a decision regarding code status. During visit, observed pt laying in bed with TF running as ordered. Per RN, pt is tolerating TF. Estimated Nutritional Needs based on adjusted body weight: 70kg Vent in L/min:13.3, Temperature:37.4C Energy: 2129kcal/day (PSU 2003b) Protein: 84-98g/day (1.2-1.4g/day) Fluid: per MD Nutrition Diagnosis 1. Inadequate enteral nutrition infusion related to low TF rate as evidenced by current rate meeting <75% of estimated calorie and protein needs. Intervention 1. Recommend increase TF rate to 60ml/hr to provide 1728kcal, 108g protein to meet 81% of caloric needs 110% protein needs. Monitor/Evaluate Goal: TF intakes to meet at least 75% of estimated needs with acceptable tolerance within 2-3 days. Monitor: TF intake/tolerance, Labs, GI function, Skin integrity, Weights. F/U in 2-3 days as high risk 03/21-
--- NOTE | 2019-03-19 13:31 | NUR ---
1. Recommend increasing TF rate to 60ml/hr to provide 1728kcal, 108g protein to meet 81% of caloric needs 110% protein needs.
--- NOTE | 2019-03-19 15:05 | NUR ---
TEMP OF 100.8F. 650MG TYLENOL NG/OG GIVEN AT THIS TIME. COOLING MEASURES PROVIDED. WILL CONT TO MONITOR.
--- NOTE | 2019-03-19 15:30 | NUR ---
DR. BROWN AT BEDSIDE ASSESSING PT. NURSING UPDATES. NO NEW ORDERS AT THIS TIME.
--- NOTE | 2019-03-19 19:12 | NUR ---
REPORT GIVEN TO RADHA BROOKS. ALL QUESTIONS/ADDRESSED. RN TO ASSUME CARE.
--- NOTE | 2019-03-19 19:15 | NUR ---
RECIEVED REPORT FROM TODD GRUBBS. NURSING UPDATES POC DISCUSSED. SEE SHIFT ASSESSMENT FOR ASSESSMENT.
--- NOTE | 2019-03-19 20:00 | NUR ---
NO ACUTE CHANGES. WILL CONT TO MONITOR.
--- NOTE | 2019-03-19 21:00 | NUR ---
NO ACUTE CHANGES. WILL CONT TO MONITOR.
--- NOTE | 2019-03-19 22:00 | NUR ---
NO ACUTE CHANGES. WILL CONT TO MONITOR.
--- NOTE | 2019-03-19 23:00 | NUR ---
NO ACUTE CHANGES. WILL CONT TO MONITOR.
[2019-03-20] VITALS (17 sets, daily range): BP systolic 97–113; BP diastolic 52–70; Ht 165.1 cm; Wt 84.9 kg
--- NOTE | 2019-03-20 | NUR ---
NO ACUTE CHANGES. WILL CONT TO MONITOR.
--- NOTE | 2019-03-20 01:00 | NUR ---
NO ACUTE CHANGES. WILL CONT TO MONITOR.
--- NOTE | 2019-03-20 02:00 | NUR ---
DR NATHAN @ BEDSIDE. NURSING UPDATES. POC DISCUSSED. AWAITING NEW ORDERS.
--- NOTE | 2019-03-20 02:26 | NUR ---
PT W/ AGITATION. CALMING MEASURES ATTEMPTED W/ NO AVAIL. ADM PRN ATIVAN (* SEE MAR) *. WILL CONT TO MONITOR.
--- NOTE | 2019-03-20 05:26 | NUR ---
NOTIFIED PER RT FIO2 DROPPED TO 25%.
[2019-03-20 05:46] LABS: CALCIUM 8.4 mg/dL (8.5-10.1); CARBON DIOXIDE 32.1 mmol/L (21-32); CHLORIDE SERUM 110 mmol/L (98-107); GFR1 > 60 mL/min; GLUCOSE SERUM 153 mg/dL (74-106); MAGNESIUM 1.7 mg/dL (1.8-2.4); PHOSPHOROUS 3.4 mg/dL (2.5-4.9); POTASSIUM SERUM 3.6 mmol/L (3.5-5.1); SODIUM SERUM 147 mmol/L (136-145)
[2019-03-20 05:47] LABS: BASOPHIL % 0.1 % (0-2); PLATELET COUNT 235 x10^3mcL (130-400)
[2019-03-20 05:48] LABS: RED CELL DISTRIBUTION WIDTH 18.5 % (11.5-14.5)
--- NOTE | 2019-03-20 06:32 | NUR ---
IVP ATIVAN ADM PER PT AGITATION AND DRESSING CHANGES PER PODIATRY.
--- NOTE | 2019-03-20 07:04 | NUR ---
RECEIVED REPORT FROM RADHA BROOKS. PATIENT RESTING COMFORTABLY IN BED WITH AIR MATTRESS IN PLACE. RAYO IN PLACE DRAINING AVINASH URINE. FLEXISEAL IN PLACE DRAINING WATERY BROWN URINE. 8.[address] AND SECURED @ 23 CM LIPLINE. OGT IN PLACE AND SECURED TO ETT. CENTRAL LINE TO RIJ IS PATENT AND INFUSING LASIX @ 8ML/HR. DRESSING CDI. VENT SETTINGS: AC MODE, T. VOL 500, RATE 16, PEEP 5, FIO2 25%. ALL QUESTIONS AND CONCERNS ADDRESSED.
--- NOTE | 2019-03-20 09:29 | NUR ---
DR HURSTYA IN TO SEE AND ASSESS PATIENT. UPDATED ON PATIENT STATUS AND NOTIFIED OF MAG 1.7. ORDERED 2G MAG RIDER X1.
--- NOTE | 2019-03-20 10:33 | NUR ---
DR BISHOP AND RESIDENTS IN TO SEE PATIENT. DISCUSSED WITH FAMILY THE PATIENT'S STATUS AND ANY CHANGES. DISCUSSED TO THINK ABOUT CODE STATUS AND DESIGNATE A ANIME ARTIST. DISCUSSED PLAN OF CARE AND ALL DOCTORS ON THE CASE. ALL QUESTIONS AND CONCERNS ADDRESSED.
--- NOTE | 2019-03-20 10:48 | NUR ---
PATIENT ROUNDS WITH DR. BURGOS AND RESIDENTS. CHARGE NURSE AND PRIMARY NURSE AT BEDSIDE. UPDATES PROVIDED AND POC DISCUSSED. WILL CONTINUE TO MONITOR.
--- NOTE | 2019-03-20 13:10 | NUR ---
IN TO SEE PATIENT TO ADMINISTER MEDICATION AND ASSESS NEEDS BEFORE LUNCH. PT RESTING COMFORTABLY IN BED WITH FAMILY AT BEDSIDE. NO NEEDS IDENTIFIED.
--- NOTE | 2019-03-20 14:04 | NUR ---
IN TO SEE PATIENT AND CLEAN FACE. ADDITIONAL ORAL CARE PROVIDED AT THIS TIME. PT ALERT AND RESTING COMFORTABLY IN BED WITH FAMILY AT BEDSIDE. ALL NEEDS MET.
--- NOTE | 2019-03-20 14:40 | NUR ---
IN TO SEE PATIENT AND REPOSITION. PT FLEXISEAL FOUND TO BE LEAKING. PT CLEANED AND FLEXISEAL FLOW RESTORED, BAG CHANGED, 700 ML IN BAG W/ ABOUT 350ML FROM TODAY. RAYO EMPTIED OF 1150 ML AVINASH URINE AND RAYO CARE PROVIDED. PT NOW RESTING IN BED WITH HEEL FLOATING BOOTS IN PLACE AND LUE RAISED ON PILLOW. ALL NEEDS MET.
--- NOTE | 2019-03-20 15:07 | NUR ---
RT CALLED TO TAKE PT OFF CPAP AND PLACE BACK ON VENT. HEART RATE 130-160'S AND RESPIRATIONS 35-39.
--- NOTE | 2019-03-20 15:31 | NUR ---
PT RESTLESS AND HAS HEART RATE FLUCTUATING BETWEEN 135-160. ATIVAN ADMINISTERED. WILL MONITOR AND ASSESS FOR ANY SOURCES OF DISCOMFORT.
--- NOTE | 2019-03-20 17:05 | NUR ---
DR SAAVEDRA IN TO SEE PATIENT AND DISCUSS PLAN OF CARE WITH FAMILY. DISCUSSED ENDOCARDITIS AND PLAN TO TRANSFER TO [facility] FOR POSS VALVE REPLACEMENT. FAMILY VERBALIZED UNDERSTANDING AND ALL QUESTIONS AND CONCERNS WERE ADDRESSED.
--- NOTE | 2019-03-20 19:15 | NUR ---
REPORT GIVEN TO RADHA BROOKS. ALL QUESTIONS AND CONCERNS ADDRESSED. ALL CARES ENDORSED.
--- NOTE | 2019-03-20 19:17 | NUR ---
REPORT RECIEVED FROM TODD FUENTES. NURSING UPDATES. POC DISCUSSED. RESUMED CARE OF PT. SEE SHIFT ASSESSMENT FOR ASSESSMENT.
--- NOTE | 2019-03-20 21:00 | NUR ---
PT RESTING CALMLY IN BED. NO ACUTE CHANGES.
--- NOTE | 2019-03-20 22:00 | NUR ---
PT RESTING CALMLY IN BED. NO ACUTE CHANGES.
--- NOTE | 2019-03-20 22:48 | NUR ---
PT W/ AGITATION. CALMING MEASURES ATTEMPTED. ADM PRN ATIVAN PER AGITATION. WILL CONT TO MONITOR.
--- NOTE | 2019-03-20 23:00 | NUR ---
PT RESTING CALMLY IN BED. NO ACUTE CHANGES.
[2019-03-21] VITALS (17 sets, daily range): BP systolic 87–114; BP diastolic 52–66
--- NOTE | 2019-03-21 | NUR ---
PT RESTING CALMLY IN BED. NO ACUTE CHANGES.
--- NOTE | 2019-03-21 01:35 | NUR ---
PT RESTING CALMLY IN BED. NO ACUTE CHANGES.
[2019-03-21 05:44] LABS: BASOPHIL % 0.1 % (0-2); PLATELET COUNT 260 x10^3mcL (130-400)
[2019-03-21 06:01] LABS: CALCIUM 8.6 mg/dL (8.5-10.1); CARBON DIOXIDE 31.4 mmol/L (21-32); CHLORIDE SERUM 110 mmol/L (98-107); CREATININE SERUM 1.1 mg/dL (0.7-1.3); GFR1 > 60 mL/min; GLUCOSE SERUM 103 mg/dL (74-106); PHOSPHOROUS 3.5 mg/dL (2.5-4.9); POTASSIUM SERUM 3.8 mmol/L (3.5-5.1); SODIUM SERUM 147 mmol/L (136-145)
[2019-03-21 06:03] LABS: RED CELL DISTRIBUTION WIDTH 18.2 % (11.5-14.5)
--- NOTE | 2019-03-21 07:15 | NUR ---
REPORT GIVEN TO TODD CHAMBERS. NURSING UPDATES. POC DISCUSSED. RELIEVED OF PT DUTIES.
--- NOTE | 2019-03-21 07:35 | NUR ---
TUBE FEEDINGS CHANGED AT THIS TIME. WILL CONTINUE TO MONITOR.
--- NOTE | 2019-03-21 11:30 | NUR ---
DR. MERRITT AT BEDSIDE ALL UPDATES PROVIDED. NO NEW ORDERS. KEEP PATIENT TO REMAIN ON LASIZ DRIP. WILL CONTINUE TO MONITOR.
--- NOTE | 2019-03-21 13:59 | NUR ---
Follow-up Nutrition Assessment: IC07/24 JASIEL [facility] FU HR Dx: NSTEMI, CHF, Afib PMHx: HTN, Afib Labs: (03/21) NA 147H, BUN 46H, ALB 1.8L, AST 61H, WBC 18.6L, HGB 8.6L Meds: Aldactone, Ativan, Dulcolax, levophed, xopenex, Zofran, heparin Diet: (NG) Vital AF 1.2 @ 10 ml/hr, goal 50 ml/hr, advance Q4H, FWF 200 ml Q3H PO Intake: NPO Weights: (03/19) 87 kg, (03/20) 92 kg, (03/21) 88 kg I/Os: (03/20) 2980/410 (-1130) Skin: blister to R dorsal foot, skin tear BUE Kojo: 12 Edema: +3 BUE, +1 BLE GI: Flexiseal in place, watery brown stool Last BM:03/21 RD Note (03/21): Patient is on CPAP currently. Vital AF 1.2 is running @ 50 ml/hr. Per RN, pt is tolerating TF without any residuals. Per RNPer progress note (03/21), On MV-will continue to attempt weaning. Currently on levaquin 500 mg IV / Vancomycin / Rifaximin. Estimated Nutritional Needs Based on adjusted body weight (70 kg) Energy: 5198-6095 (30-35 kcal/kg for sepsis) Protein: 84-98 g/day (1.2-1.4 g/kg for sepsis) Fluid: 5267-5067 mL/day (1 mL/kcal) or per MD Nutrition Diagnosis: 1. Inadequate enteral nutrition infusion related to low TF rate as evidenced by current rate meeting <75% estimated calorie and protein needs of the patient. (ongoing) Intervention: 1. Recommend progressing Vital AF 1.2 @ goal rate of 60 ml/hr. This will provide 1730 kcal and 108g protein. This will meet >75% calorie and >100% protein needs of the patient. Discussed with Dr. Chávez. Monitor/Evaluate: Goal: Have pt meet at least 75% of estimated needs Monitor: PO intake, Labs, GI function F/U in 3-5 days as moderate risk 03/24-03/26
--- NOTE | 2019-03-21 14:18 | NUR ---
DR. QUIGLEY AT BEDSIDE, ALL UPDATES PROVIDED. PER DR. QUIGLEY HR IS UP, CONSULT CARDIO FOR DILTIAZEM DRIP. ALSO ABG TO BE DONE. RT AT BEDSIDE AND AWARE. WILL CONTINUE TO MONITOR.
--- NOTE | 2019-03-21 17:30 | NUR ---
REC'D REPORT FROM REYES BROOKS TO ASSUME CARE. PT IS INTUBATED 8.0 ETT @ 23CM LL. PT IS NOT SEDATED. UNABLE TO ASSESS ORIENTATION. PT RESPONDS TO VERBAL COMMANDS AND TACTILE STIMULATION. PUPILS ARE 3MM AND SLUGGISH JASON. RIJ CVC INTACT, PORTS PATENT, DSG CDI. OGT INTACT AND SECURED. EENT FREE OF DISCHARGE. NO JVD NOTED, TRACHEA MIDLINE. ETT TO VENT: AC, FIO2 25%, RR 16, TIDAL VOL 500, PEEP 5. PT'S BREATHING IS E/U. LUNG SOUNDS CTA. CHEST RISE EQUAL AND SYMMETRICAL. O2 SATS 99%. RETAIL DEPARTMENT SUPERVISOR IN PLACE SHOWING A. FIB WITH HR 120, BP 99/54, MAP 69. CHEST WALL STABLE. BUE PULSES ARE MODERATE, BLE PULSES ARE WEAK. CAP REFILL <3 SEC BUE. UNABLE TO ASSESS CAP REFILL BLE. PT'S FEET AND TOE NAILS ARE BLACK. SKIN TEARS NOTED TO BUE. BLISTER NOTED TO R FOOT. PT'S SKIN IS WARM AND DRY TO TOUCH. PT HAS +4 PITTING EDEMA NOTED TO LEFT ARM. PERIPHERAL IV TO RIGHT WRIST, INTACT DSG CDI. PT HAS LASIX RUNNING @ 8ML/HR. PT IS BED BOUND, GEN WEAKNESS. PT HAS A RIGHT WRIST RESTRAINT FOR PT SAFETY. PT HAS VITAL AF TF INFUSING @ 60ML/HR W/ 200 ML FWF Q3H. PT IS TOLERATING WELL. GRV 10ML REPLACED. ABD IS SOFT AND ROUND, BOWEL SOUNDS ACTIVE X4 QUADRANTS. PT HAS A FLEXI SEAL IN PLACE DRAINIGN VIA GRAVITY LOOSE DARK BROWN STOOL. RAYO INTACT AND DRAINING VIA GRAVITY. URINE IS AVINASH. HEELS OFFLOADED W/ PILLOWS, W/ FLEX BOOTS IN PLACE. UNABLE TO FULLY ASSESS PT'S PSYCHOSOCIAL AT THIS TIME. TURNED AND REPOSITIONED Q2H FOR PRESSURE RELIEF, ALL NEEDS MET AT THIS TIME, WILL CONTINUE TO MONITOR.
--- NOTE | 2019-03-21 19:13 | NUR ---
REPORT AT THIS TIME GIVEN TO TODD WILSON ALL QUESTIONS ANSWERED.
--- NOTE | 2019-03-21 19:15 | NUR ---
REPORT GIVEN TO TODD WILSON AT THIS TIME. ALL QUESTIONS ANSWERED.
--- NOTE | 2019-03-21 19:15 | NUR ---
REPORT AT THIS TIME GIVEN TO TODD CHACON ALL QUESTIONS ANSWERED.
--- NOTE | 2019-03-21 23:30 | NUR ---
PT AWAKE AND RESTLESS ADMINISTERED 1MG OF ATIVAN.
[2019-03-22] VITALS (19 sets, daily range): BP systolic 93–104; BP diastolic 57–67
[2019-03-22 05:24] LABS: PLATELET COUNT 279 x10^3mcL (130-400)
[2019-03-22 05:28] LABS: RED CELL DISTRIBUTION WIDTH 18.3 % (11.5-14.5)
[2019-03-22 05:35] LABS: CALCIUM 8.3 mg/dL (8.5-10.1); CARBON DIOXIDE 29.4 mmol/L (21-32); CREATININE SERUM 1.3 mg/dL (0.7-1.3); MAGNESIUM 1.9 mg/dL (1.8-2.4); PHOSPHOROUS 4.1 mg/dL (2.5-4.9); POTASSIUM SERUM 4.2 mmol/L (3.5-5.1)
[2019-03-22 06:15] LABS: BAND NEUTROPHIL 5 % (0-10); SEGMENTED NEUTROPHILS 80 % (37-75)
[2019-03-22 06:16] LABS: MONOCYTE 5 % (0-7); PLATELET MORPHOLOGY PLATELETS NORMAL; rbc morphology (normal/abnorm) ABNORMAL (NORMAL)
--- NOTE | 2019-03-22 07:54 | NUR ---
PER EITAN, PHARMACIST HOLD VANCO AT THIS TIME. VANCO TROUGH:25. PATIENT STABLE WILL CONTINUE TO MONITOR.
--- NOTE | 2019-03-22 09:34 | NUR ---
DRESSING CHANGED TO R FOOT AT THIS TIME. PATIENT STABLE WITH NO SIGNS OF DISTRESS. WILL CONTINUE TO MONITOR.
--- NOTE | 2019-03-22 16:52 | NUR ---
RECIEVED PHONE CALL FROM DR. GASTELUM, UPDATES PROVIDED FROM NURSING. NEW ORDERS RECIEVED TO D/C MONIQUE, D/C IFEANYI, START VANCO PER PHARMACY, ROCEPHIN 2 MG IV DAILY, AND FLAGYL 500 MG IV Q 8HRS. ALL ORDERS READBACK AND CONFIRMED. WILL CARRY OUT. PRIMARY RN UPDATED.
--- NOTE | 2019-03-22 19:07 | NUR ---
REPORT AT THIS TIME GIVEN TO TODD MICHAEL AND OSWALDO BROOKS ALL QUESTIONS ANSWERED.
--- NOTE | 2019-03-22 19:30 | NUR ---
REC'D REPORT FROM REYES BROOKS TO ASSUME CARE. PT IS INTUBATED, NO SEDATION. UNABLE TO ASSESS ORIENTATION AT THIS TIME. PT RESPONDS TO TACTILE STIMULATION AND SIMPLE VERBAL COMMANDS. PUPILS ARE 3MM AND SLUGGISH JASON. 8.0 ETT INTACT AND SECURED 23 CM @ LL. RIJ CVC INTACT, PORTS PATENT, DSG CDI. OGT INTACT AND SECURED. EENT FREE OF DISCHARGE. NO JVD NOTED, TRACHEA MIDLINE. ETT TO VENT: AC, RATE 16, TIDAL VOL 500, PEEP 5, FIO2 25%. PT IS BREATHING E/U UPPER LUNG SOUNDS CTA. LOWER LUNG SOUNDS DIMINISHED. CHEST RISE EQUAL AND SYMMETRICAL. STORY EDITOR IN PLACE SHOWING A. FIB, HR 117, BP 104/59, MAP 72 CHEST WALL STABLE. BUE PULSES ARE MODERATE, BLE PULSES ARE WEAK. BUE CAP REFILL <3 SEC. UNABLE TO ASSESS BLE CAP REFILL, PT'S TOENAIL BEDS ARE BLACK. SKIN IS WARM AND DRY TO TOUCH. +3 EDEMA NOTED TO BUE & BLE. PERIPHERAL IV TO R WRIST INTACT, PATENT, DSG CDI. LASIX INFUSING @ 8ML/HR. PT IS BED BOUND W/ GEN WEAKNESS. PT HAS A R WRIST RESTRAINT IN PLACE FOR PT SAFETY. VITAL AF TF INFUSING @ 60ML/HR W/ FWF 200ML Q3H TOLERATING WELL W/ GRV = 10ML REPLACED. ABD IS SOFT AND ROUNDED, BOWEL SOUNDS X4 QUADRANTS. FLEXISEAL IN PLACE DRAINING VIA GRAVITY, LOOSE DARK BROWN STOOL. RAYO INTACT AND DRAINING VIA GRAVITY, AVINASH COLORED URINE, W/ ADEQUATE OUTPUT. PT HAS BUE SKIN TEARS W/ VERSATILE DSG IN PLACE R FOOT BLISTER W/ KERLIX DSG IN PLACE. PT'S FEET SKIN COLOR ARE BLACK AND REDDISH DISCOLORATION. HEELS OFFLOADED W/ PILLOWS. UNABLE TO FULLY ASSESS PSYCHOSOCIAL AT THIS TIME. WILL CONTINUE TO MONITOR.
--- NOTE | 2019-03-22 21:00 | NUR ---
DR. CASTAÑEDA (NEPHRO) AT BEDSIDE, UPDATED DR ON PT STATUS. ORDER GIVEN FOR ALBUMIN X2 DOSES FOR HYPOTENSION. ORDER NOTED AND CARRIED OUT.
--- NOTE | 2019-03-22 22:38 | NUR ---
DR. GASTELUM IN TO SEE PT, UPDATE ON STATUS. NO NEW ORDERS.
[2019-03-23] VITALS (14 sets, daily range): BP systolic 74–111; BP diastolic 42–64
--- NOTE | 2019-03-23 03:07 | NUR ---
PT'S HR 150'S CALLED DR MARTEL, ORDER GIVEN FOR CARDIZEM 10 MG IVP. CARDIZEM IVP GIVEN AT THIS TIME, WILL CONTINUE TO MONITOR.
--- NOTE | 2019-03-23 04:17 | NUR ---
PT'S HR 160'S, CALLED DR. MARTEL ORDER GIVEN FOR ATIVAN IVP.
[2019-03-23 05:48] LABS: PLATELET COUNT 299 x10^3mcL (130-400)
[2019-03-23 05:58] LABS: RED CELL DISTRIBUTION WIDTH 18.8 % (11.5-14.5)
--- NOTE | 2019-03-23 05:58 | NUR ---
CALLED DR. MARTEL AND REPORTED ONE OF THE PORTS IN THE CVC IS CLOTTING, ORDER GIVEN FOR HEPARIN FLUSH. REPORTED ELEVATED CVP OF 20-26, AWAITING FURTHER ORDERS.
[2019-03-23 06:12] LABS: METAMYELOCTE 1 % (0-2); MONOCYTE 4 % (0-7); MYELOCYTE 1 % (0-2); SEGMENTED NEUTROPHILS 88 % (37-75)
[2019-03-23 06:14] LABS: rbc morphology (normal/abnorm) ABNORMAL (NORMAL)
[2019-03-23 06:15] LABS: PLATELET MORPHOLOGY PLATELETS NORMAL; target cell (codocyte) 1+
[2019-03-23 06:44] LABS: CALCIUM 8.8 mg/dL (8.5-10.1); CARBON DIOXIDE 26.9 mmol/L (21-32); CREATININE SERUM 1.5 mg/dL (0.7-1.3); POTASSIUM SERUM 4.1 mmol/L (3.5-5.1)
--- NOTE | 2019-03-23 07:00 | NUR ---
CALLED DR. MARTEL, REPORTED CRITICAL LAB VALUES OF BUN 62, AND VANCO 27.8. NO NEW ORDERS GIVEN.
--- NOTE | 2019-03-23 07:30 | NUR ---
PT HAS ETT IN PLACE, CAN TRACK WITH EYES AND FOLLOW SIMPLE COMMANDS. PERRLA, PUPILS SLUGGISH AT 3MM. VENT SETTINGS VT:500, FIO2: 25, PEEP 5, RATE 16. LUNG SOUNDS DIMINISHED BILATERALLY BASES. OGT IN PLACE, AUCULTATED PLACEMENT. PATENT WITH 10ML RESIDUAL NOTED, FLUSHED. RIJ IN PLACE WITH LUMENS FLUSHED WITH GOOD BLOOD RETURN. FLEXISEAL IN PLACE DRAINING LIQUID BROWN/GREEN STOOL. RAYO CATH IN PLACE, PATENT, DRAINING DARK YELLOW URINE. STAT LOCK TO R THIGH. PT HAS R WRIST RESTRAINT IN PLACE, SITE WNL. NO S/S OF PAIN AT THIS TIME. HOB ELEVATED 30 DEGREES. BED IN LOWEST POSITION. WILL CONTINUE TO MONITOR.
--- NOTE | 2019-03-23 08:53 | NUR ---
PLACED ONTO CPAP TRIAL PS 17 PEEP 5. WILL CONTINUE TO MONITOR.
--- NOTE | 2019-03-23 09:33 | NUR ---
ATIVAN 1 MG IVP GIVEN FOR AGITATION. SCHEDULED MEDS GIVEN AND TOLARATED WELL. RESP EVEN AND UNLABORED. HOB ELEVATED > 30 DEGREES. ETT AT 23 LL. NO S/S OF PAIN NOTED. RESTRAINT IN PLACE TO R HAND. WILL CONTINUE TO MONTITOR.
--- NOTE | 2019-03-23 10:11 | NUR ---
RESPIRATORY RATE 40-42. PLACED PT BACK ONTO AC/VC 500 RATE 16 PEEP 5 FIO2 25%. WILL CONTINUE TO MONITOR.
--- NOTE | 2019-03-23 11:02 | NUR ---
FENANYL 100MCG IVP GIVEN FOR AGITATION, PT WORKING AGAINST THE THE ETT. B/P 109/68, (79), HR 127. RESP EVEN AND UNLABORED. WILL CONTINUE TO MONITOR.
--- NOTE | 2019-03-23 11:03 | NUR ---
FENTANYL 100MCG IVP GIVEN FOR AGITATION, PT WORKING AGAINST THE THE ETT. B/P 109/68, (79), HR 127. RESP EVEN AND UNLABORED. WILL CONTINUE TO MONITOR.
--- NOTE | 2019-03-23 12:00 | NUR ---
S/P XRAY BEING TAKEN AT BEDSIDE. RN WALKED INTO ROOM AND ASSESS PT. RIJ CENTRAL LINE NOTED TO BE OUT WITH CATH INTACT. RESTRAINT TO R WRIST SECURED IN PLACE. POSSIBLE DISLODGE DURING XRAY BEING TAKEN. RN DID NOT SEE PT REMOVE CENTRAL LINE R WRIST RESTRAINT WAS SECURED AND PT WEAK. PER HEAD GRINDER UNSURE HOW CENTRAL LINE DISLODGED. KENO WRITER NOTIFIED. PRESSURE DRESSING APPLIED. TWO 20 [address]IPHERAL IV CATH PLACE TO . LASIX DRIP RESUMED. WILL NOTIFY DR. DEJESUS TO MAKE AWARE.
--- NOTE | 2019-03-23 12:10 | NUR ---
FLEXISEAL NOTED TO BE DISLOGDED DURING TORREY CARE. FLEXISEAL BALLOON INTACT. HYIGENE CARE PROVIDED. NEW FLEXISEAL INSERTED. PT TOLERATED WELL.
--- NOTE | 2019-03-23 12:13 | NUR ---
RH IV CATH STARTED 2OG. COVERED WITH CDI OCCLUSIVE DRESSING.
--- NOTE | 2019-03-23 12:15 | NUR ---
PT DR. DEJESUS TO COME TO ASSESS PT. DR. DEJESUS STATED SHE WILL BE HERE SOON.
--- NOTE | 2019-03-23 12:29 | NUR ---
ATIVAN 1MG GIVEN IVP FOR RESTLESSNESS. B/P95/57, HR 128. PT CHANGED AND REPOSITIONED. RAYO CATH AND PERINEAL CARE GIVEN.
--- NOTE | 2019-03-23 12:38 | NUR ---
RECIEVED CALL FROM DR. DEJESUS. STATED SHE SPOKE WITH RECEIVABLE EXECUTIVE DR. QUIGLEY AND STATED WE WILL DO A CXR, ABG AND INITIATED VERSED DRIP FOR SEDATION. DR. DEJESUS ALSO MADE AWARE LOPRESSOR 5MG IVP WAS NOT GIVEN EARLIER DUE TO LOW BP. DR. DEJESUS IN AGREEMENT. WILL CONT TO MONITOR.
--- NOTE | 2019-03-23 12:46 | NUR ---
METOPROLOL IVP NOT GIVEN DUE TO LOW B/P 91/49 (63). WILL MAKE DR. DEJESUS AWARE.
--- NOTE | 2019-03-23 13:44 | NUR ---
VERSAD STARTED AT 2MG/HOUR. RSS 5 AT THIS TIME. SCHEDULED MED GIVEN VIA OGT. NO RESIDUAL NOTED OGT, FLUSED WITH 30CC BEFORE AND AFTER MED ADMINISTRATION. PT HOB ELEVATED AT 45 DEGREES. WILL CONTINUE TO MONITOR.
--- NOTE | 2019-03-23 14:05 | NUR ---
DR. QUIGLEY AT BEDSIDE TO SEE AND ASSESS PT. UPDATED BY RN AND RT. PER DR. QUIGLEY HOLD LASIX DRIP AT THIS TIME, INCREASE VERSED TO 4MG/HR AND INITATE FENTANYL DRIP. DR. DEJESUS IN UNIT AND MADE AWARE, AWAITING ORDERS.
--- NOTE | 2019-03-23 14:16 | NUR ---
PT ALSO TO GET CT CHEST WITHOUT CONTRAST
--- NOTE | 2019-03-23 14:37 | NUR ---
FENTANYL DRIP STARTED AT O.5 MCG/KG/HOUR. RSS AT 4. WILL CONTINUE TO MONITOR.
--- NOTE | 2019-03-23 15:09 | NUR ---
FENTANYL DRIP INCREASED TO 1MCG/KG/HOUR. PT RR AT 35 BPM, PT RESTLESS.
[2019-03-23 15:23] LABS: PLATELET COUNT 313 x10^3mcL (130-400)
[2019-03-23 15:35] LABS: RED CELL DISTRIBUTION WIDTH 19.5 % (11.5-14.5)
[2019-03-23 15:39] LABS: CALCIUM 8.8 mg/dL (8.5-10.1); CARBON DIOXIDE 14.2 mmol/L (21-32); TOTAL PROTEIN, SERUM 7.2 g/dL (6.4-8.2)
--- NOTE | 2019-03-23 15:46 | NUR ---
REPORTED TO DR. DEJESUS URINE OUTPUT AT 300ML AFTER 8 HOURS. NNO AT THIS TIME.
[2019-03-23 15:47] LABS: ALBUMIN 2.5 g/dL (3.4-5.0)
[2019-03-23 15:50] LABS: BAND NEUTROPHIL 2 % (0-10); BASOPHIL 0 % (0-2); MONOCYTE 6 % (0-7); SEGMENTED NEUTROPHILS 85 % (37-75); rbc morphology (normal/abnorm) ABNORMAL (NORMAL)
--- NOTE | 2019-03-23 15:50 | NUR ---
SODIUM BICARBONATE 100MEQ IVP GIVEN AT THIS TIME. PT L FOOT DRESSING CX. DRESSING REMOVED, AREA CLEANSED WITH N/S, PATTED DRY. GAUZE SOAKED IN BETADINE PLACED THEN COVERED WITH KERLIX. NO S/S OF INTECTION AT SITE. PT TOLERATED PROCEDURE WELL.
--- NOTE | 2019-03-23 15:53 | NUR ---
DR. DEJESUS MADE AWARE LACTIC ACID 10.5
--- NOTE | 2019-03-23 15:55 | NUR ---
LAB REPORTED PT'S BS IS 56, AND K+=6. DR. DEJESUS MADE AWARE. PT BS SPOT CHECKED AND FOUND TO BE 28. 50% 25MG DEXTROSE GIVEN IVP. WILL REASSES SUGAR.
--- NOTE | 2019-03-23 16:15 | NUR ---
BLOOD SUGAR NOW 120MG/DL. WILL CONTINUE TO MONITOR.
--- NOTE | 2019-03-23 16:25 | NUR ---
PT'S RESP RATE AT 35 BPM, BREATHING LABORED. VERSED INCREASED TO 6 MG/HOUR.
--- NOTE | 2019-03-23 16:30 | NUR ---
R WRIST RESTRAINT REMOVED. PT SEDATED ON VERSAD AND ON FENTANYL DRIP. NO PURPOSEFULL MOVEMENT AT THIS TIME.
--- NOTE | 2019-03-23 16:33 | NUR ---
FENTANYL INCREASED TO 1.5 MCG/KG/HR AT THIS TIME.
--- NOTE | 2019-03-23 17:13 | NUR ---
RECIEVED CALL FROM DR. DEJESUS WHO STATED SHE HELD A CONFERENCE CALL WITH PT'S SISTERS AND HAD DISCUSSED PT CONDITION AND CODE STATUS. PER DR. DEJESUS FAMILY HAS DECIDED DNR AT THIS TIME AND WOULD NOT LIKE TO HAVE ANOTHER CENTRAL LINE PLACED. PRIMARY RN MADE AWARE.
--- NOTE | 2019-03-23 17:15 | NUR ---
TITRATED VERSED DOWN TO 4MG/HR, TITRATED FENTANYL DOWN TO 1MCG/KG/HR FOR LOW BP.
--- NOTE | 2019-03-23 17:32 | NUR ---
BS 78. LOKELMA OGT GIVEN FOR k+ 6.0. SCHEDULED MED GIVEN. OGT NOTED WITH 40ML RESIDUAL. WILL CONTINUE TO MONITOR.
--- NOTE | 2019-03-23 18:30 | NUR ---
DIGOXIN IVP GIVEN X1 DOSE AT THIS TIME.
--- NOTE | 2019-03-23 18:55 | NUR ---
PT IS SEDATED ON VERSED WITH ETT IN PLACE. RISS 4. TELE 5 READING AFIB. PT HAS 2 RH IV CATH AND ON RAC CATH PLACED, PATENT, SITE WNL. NO S/S OF INFECTION OR INFILTRATION. PT IS VERSED RUNNING AT 6ML/HR, AND FENTANYL RUNNING AT 1.5. PT OGT IN PLACE WITH LL AT 23LL AND FEEDING VITAL AF RUNNNING AT 60ML WITH 300ML FLUSH Q 3 HOURS. PT WAS TURNED AND REPOSITION Q 2 HOURS THROUGH OUT SHIFT. CALL LIGHT WITHIN REACH. BED IN LOWEST POSITION. WILL ENDORSE ALL CARE TO NOC RN.
--- NOTE | 2019-03-23 20:00 | NUR ---
PTS JEREMY CASANOVA, AT BEDSIDE. UPDATED ON STATUS. MADE AWARE PT HYPOTENSIVE WITH MAP < 50. PT CALLED SISTER, DUONG. DUONG PLACED ON SPEAKER PHONE, SPOKE WITH DR MARTEL AND I REGARDING CODE STATUS. DUONG AND JEREMY AWARE PT DNR AT THIS TIME BUT (YES) VASOPRESSORS/ACLS. MADE AWARE PT DOES NOT HAVE CENTRAL LINE AND EXPLAINED RISKS OF RUNNING VASOPRESSORS THROUGH PERIPHERAL LINE. DUONG AND JEREMY AGREED "WE DO NOT WANT HIM TO GET POKED. WE WANT HIM TO BE COMFORTABLE." EXPLAINED IF FAMILY WOULD LIKE TO CHANGE CODE STATUS TO FULL DNR WITH NO PRESSORS. DUONG (SISTER) STATES I WILL CALL GET IN CONTACT WITH MY OTHER SISTER AND CALL YOU BACK.
--- NOTE | 2019-03-23 20:49 | NUR ---
REC'D REPORT FROM TERRIE BROOKS TO ASSUME CARE. PT IS INTUBATED AND SEDATED ON FENTANYL INFUSING @ 1MCG/KG/HR, VERSED INFUSING @ 4MG/HR. UNABLE TO ASSESS ORIENTATION. PT RESPONDS TO TACTILE STIMULATION. PUPILS ARE 2MM SLUGGISH JASON. RSS 4. 8.0 ETT INTACT AND SECURED @ 23LL. OGT INTACT AND SECURED W/ VITAL AF TF INFUSING @ 60ML/HR W/ 200ML FWF Q3H GRV=0ML PT HAS DIM LUNG SOUNDS THROUGHOUT. ETT TO VENT: AC, RATE 16, TIDAL VOL 500, PEEP 5, FIO2 25%. NETWORK LIAISON IN PLACE SHOWING A. FIB HR 100, BP 85/42, MAP 49. PULSES ARE WEAK X4. CAP REFILL >3 SEC BUE. UNABLE TO ASSESS CAP REFILL FOR BLE, PT'S TOE NAIL BEDS HAVE BLACK DISCOLORATION. +3 EDEMA NOTED TO BUE & BLE. 2 PERIPHERAL IV NOTED TO R HAND, 1 PERIPHERAL IV NOTED TO R AC. NS INFUSING AT 100ML/HR. PT IS BED BOUND W/ GEN WEAKNESS. ABD SOFT AND DISTENDED BOWEL SOUNDS ACTIVE X4 QUADRANTS. FLEXISEAL IN [place] DRAINING VIA GRAVITY. RAYO INTACT AND DRAINING VIA GRAVITY. URINE IS AVINASH IN COLOR. SKIN TEARS NOTED TO BUE, BLISTER NOTED TO R FOOT W/ KERLIX DSG IN PLACE. BLACK AND REDDISH DISCOLORATION NOTED TO BOTH FEET. PT HAS FLEXI BOOTS IN PLACE. HEELS OFFLOADED W/ PILLOWS. UNABLE TO FULLY ASSESS PSYCHOSOCIAL AT THIS TIME. FAMILY AT BEDSIDE. TURNED AND RESPOSITIONED Q2H FOR PRESSURE RELIEF, ALL NEEDS MET AT THIS TIME. WILL CONTINUE TO MONITOR.
--- NOTE | 2019-03-23 21:00 | NUR ---
DR CASTAÑEDA (NEPHRO) AT BEDSIDE TO SEE PT, UPDATED ON PTS STATUS. VERBAL ORDER GIVEN TO ADMINISTER D50 IVP X2 DOSES, THEN HUM R INSULIN 5 UNITS SQ X1. ORDER NOTED AND CARRIED OUT.
--- NOTE | 2019-03-23 22:13 | NUR ---
PT'S HR DROPPED TO 34, JEREMY CASANOVA AT BEDSIDE MADE AWARE TO CALLED SISTER DUONG AT THIS TIME.
--- NOTE | 2019-03-23 22:14 | NUR ---
PT ASYSTOLE, NO PULSE. BP UNOBTAINABLE. CALLED DR. MARTEL.
--- NOTE | 2019-03-23 22:20 | NUR ---
DR. NOED AT BEDSIDE TO ASSESS PATIENT, CONFIRMED TIME OF 2219. PT'S EDILBERTO LUNA AT BEDSIDE ON PHONE WITH SISTER DUONG AND MADE AWARE OF PATIENT'S TIME OF . ALL QUESTIONS AND CONCERNS ADDRESSED.
--- NOTE | 2019-03-23 22:24 | NUR ---
SB EPIC ANESTHESIA ANALYST CALLED, AWAITING CALL BACK.
--- NOTE | 2019-03-23 22:33 | NUR ---
[facility] CALLED SPOKE TO BERTHA, MADE AWARE OF PT'S . BERTHA STATES PATIENT'S BODY RELEASED. CASE # PROVIDED [id number].
--- NOTE | 2019-03-24 01:05 | NUR ---
SPOKE TO PHILIP BARNEGAT ECOLOGY TEACHER, UPDATED ON PT'S . PHILIP STATES THIS IS NOT A CORONERS CASE AND WILL RELEASE THE BODY. CASE # [id number]
--- NOTE | 2019-03-24 01:30 | NUR ---
[facility]ORT[facility] CARE PROVIDED, PT'S EDILBERTO LEFT HOME AT THIS TIME.
--- NOTE | 2019-03-24 01:50 | NUR ---
PT TAKEN BY SECURITY TO ARIES.
== END 2019-03-24 01:50 | disposition expired | DRG 870 ==
LOC: ED 12:22 → IC 17:13
PROVIDERS: Emergency Medicine; Family Medicine; General Practice; Internal Medicine Gastroenterology; Internal Medicine Nephrology; ADMIT Internal Medicine
PROC: 02HV33Z Insertion of Infusion Device into Superior Vena Cava, Percutaneous Approach (ICD-10-PCS; principal; 2019-03-10)
PROC: B548ZZA Ultrasonography of Superior Vena Cava, Guidance (ICD-10-PCS; 2019-03-10)
PROC: 5A1955Z Respiratory Ventilation, Greater than 96 Consecutive Hours (ICD-10-PCS; 2019-03-18)
PROC: 0BH17EZ Insertion of Endotracheal Airway into Trachea, Via Natural or Artificial Opening (ICD-10-PCS; 2019-03-18)
DX: A41.9 Sepsis, unspecified organism (principal); R65.21 Severe sepsis with septic shock; J96.01 Acute respiratory failure with hypoxia; N17.0 Acute kidney failure with tubular necrosis; I21.4 Non-ST elevation (NSTEMI) myocardial infarction; J18.9 Pneumonia, unspecified organism; I50.21 Acute systolic (congestive) heart failure; N39.0 Urinary tract infection, site not specified; I38 Endocarditis, valve unspecified; I13.0 Hypertensive heart and chronic kidney disease with heart failure and stage 1 through stage 4 chronic kidney disease, or unspecified chronic kidney disease; D68.9 Coagulation defect, unspecified; I48.91 Unspecified atrial fibrillation; I25.2 Old myocardial infarction; Y90.9 Presence of alcohol in blood, level not specified; K52.9 Noninfective gastroenteritis and colitis, unspecified; D69.6 Thrombocytopenia, unspecified; F10.20 Alcohol dependence, uncomplicated; K74.60 Unspecified cirrhosis of liver; R57.0 Cardiogenic shock; N18.9 Chronic kidney disease, unspecified; D64.9 Anemia, unspecified; I35.1 Nonrheumatic aortic (valve) insufficiency
CPT/HCPCS: 31500; 36556; 36600; 82962; 83880; 84439; 87046; 87046-59; 87491; 87591; 87804; 90658; A4628; C9113; G0378; J0282; J0696; J1160; J1642; J1644; J1940; J1956; J2060; J2185; J2250; J2270; J2370; J2405; J2543; J2704; J3010; J3370; J3430; J3475; J3480; J3490; J7030; J7040; J7050; P9047; Q0092